=== PATIENT | female | born 1960 | race Hispanic/Latino ===

== ENCOUNTER → 2018-06-22 | Outpatient (CLI) | payer OTHER | END | disposition home or self-care (01) | LOC: SHCH 10:00 | PROVIDERS: ATTEND Internal Medicine Cardiovascular Disease | DX: I11.9 Hypertensive heart disease without heart failure (principal); I35.8 Other nonrheumatic aortic valve disorders; I65.23 Occlusion and stenosis of bilateral carotid arteries | CPT/HCPCS: 93306; 93880 ==

== ENCOUNTER → 2018-07-08 | Outpatient (CLI) | payer OTHER ==
[~2018-07-08] MED LIST: IOHEXOL-350 75 ML VIAL IV ONE
== END | disposition home or self-care (01) ==
LOC: RAH 08:07
PROVIDERS: ATTEND Internal Medicine Cardiovascular Disease
DX: I65.23 Occlusion and stenosis of bilateral carotid arteries (principal); I25.810 Atherosclerosis of coronary artery bypass graft(s) without angina pectoris
CPT/HCPCS: 70498; Q9967

== ENCOUNTER 2018-09-06 05:50 | Observation (INO) | payer OTHER, MEDICARE ==
[2018-09-02 12:45] VITALS: BP 117/58
[2018-09-02 13:13] LABS: BASOPHILS % (AUTO) 0.2 % (0.0-5.0); HEMATOCRIT 33.6 % (36-48); LYMPHOCYTES % (AUTO) 24.7 % (21.0-51.0); MEAN CORPUSCULAR HEMOGLOBIN 34.9 pg (27.0-33.0); MEAN CORPUSCULAR HGB CONC 33.6 g/dL (32.0-36.0); MEAN CORPUSCULAR VOLUME 103.9 fL (79-99); MONOCYTES % (AUTO) 8.5 % (3.0-13.0); NEUTROPHILS % (AUTO) 63.6 % (40.0-77.0); PLATELET COUNT (AUTO) 114 K/uL (130-400); RED BLOOD CELL COUNT(AUTO) 3.24 MIL/uL (4.00-5.50); RED CELL DISTRIBUTION WIDTH 14.4 % (11.0-15.5); WHITE BLOOD COUNT (AUTO) 5.9 K/uL (4.8-10.8)
[2018-09-02 13:20] LABS: CREATININE 1.3 mg/dL (0.5-1.5); POTASSIUM 4.5 mmol/L (3.5-5.1)
[2018-09-02 13:20] LABS: APPEARANCE,URINE Clear (CLEAR); BILIRUBIN,URINE Negative (NEGATIVE); COLOR,URINE Yellow (YELLOW); GLUCOSE, URINE (UA) Negative (NEGATIVE); KETONES,URINE Negative (NEGATIVE); LEUKOCYTE ESTERASE ,URINE Trace (NEGATIVE); NITRATE,URINE Negative (NEGATIVE); OCCULT BLOOD,URINE Negative (NEGATIVE); PROTEIN,URINE Negative (NEGATIVE)
[2018-09-02 13:24] LABS: INR 1.04 (0.85-1.15); PARTIAL THROMBOPLASTIN TIME 29.6 SEC (26.3-35.5); PROTHROMBIN TIME 10.9 SEC (9.6-11.6)
[2018-09-02 13:53] LABS: BACTERIA,URINE Few /HPF (None Seen); RBC,URINE 0-1 /HPF (0-1); WBC,URINE 0-1 /HPF (0-1)
--- NOTE | 2018-09-05 11:54 | NUR ---
LABS ABNORMAL H&H, PLT , BUN, CREA AND CHEST XRAY. REPORTED TO RICK BARTHOLOMEW, NO FURTHER ORDERS GIVEN.
[2018-09-06] VITALS (15 sets, daily range): BP systolic 101–139; BP diastolic 50–77
[~2018-09-06] VITALS: Ht 144.8 cm; Wt 62.2 kg
[~2018-09-06 05:50] MED LIST changes: +ASPI-555 PO; +ATOR10TA69 PO; +CETI10TA57 PO; +CLOP75TA32 PO; +FERR325T22 PO; +INSU200I SQ; +INSU300I SQ; -IOHEXOL-350 75 ML VIAL IV ONE; +LEVO175T9 PO; +METO-408 PO; +VITAMIN D3 PO
[2018-09-06] MEDS ORDERED: SODIUM CHLORIDE 0.9% 1000ML 1,000 ML IV ONE (06:45)
[2018-09-06] MEDS ORDERED: HEPARIN SODIUM 1000UNIT/ML 10ML VIAL ONE (07:15)
[2018-09-06] MEDS ORDERED: SODIUM BICARB 50MEQ 50ML VIAL ONE (07:15)
[2018-09-06] MEDS ORDERED: LIDOCAINE HCL 2% 20ML ONE (07:15)
[2018-09-06] MEDS ORDERED: IOHEXOL-350 50ML VIAL IV ONE (07:15)
[2018-09-06] MEDS ORDERED: NITROGLYCERIN 5 MG/ML 10 ML VIAL IV ONE (07:15)
[2018-09-06] MEDS ORDERED: IOHEXOL 350 MG/ML 100ML INFUS..BTL IV ONE ×2 (07:15→08:42)
[2018-09-06] MEDS ORDERED: MEPERIDINE-PF 25 MG/ML SYG ONE ×3 (07:52→09:33)
[2018-09-06] MEDS ORDERED: MIDAZOLAM HCL 1 MG/ML 2ML VIAL ONE ×3 (07:52→09:33)
[2018-09-06] MEDS ORDERED: IOHEXOL-350 75 ML VIAL IV ONE (08:52)
[2018-09-06] MEDS ORDERED: ONDANSETRON HCL 4 MG/2 ML VIAL IVP PRN (09:45)
[2018-09-06] MEDS ORDERED: ACETAMINOPHEN-CODEINE 300/30MG TAB PO PRN ×2 (09:45)
[2018-09-06] MEDS ORDERED: DEXTROSE 50%-WATER 50 ML DISP.SYRIN IV PRN (09:45)
--- NOTE | 2018-09-06 10:25 | NUR ---
RECEIVED FROM JOINT FINISHER VIA BED ACCOMPANIED BY Brianna BEY RN. PT. AAOX3, RESP.'S EVEN AND UNLABORED. DENIES ANY C/O SOB, DENIES ANY CURRENT PAIN. INSTRUCTED ON STRICT BR PER MD ORDERS, VERBALIZED UNDERSTANDING. BILATERAL GROINS WITH DRSG.'S IN PLACE, D/I; AREAS SOFT, NO HEMATOMA NOTED. PT. DENIES ANY C/O PAIN ON PALPATION TO GROINS. DENIES ANY C/O NUMBNESS OR TINGLING TO FEET. BED PLACED IN REVERSE [place] POSITION. SIDE RAILS UP X3. ROOM DOOR OPEN, VISIBLE FROM NURSE'S STATION.
[2018-09-06] MEDS: INSULIN HUMULIN R 100 UNIT/ML 3ML SQ SCH ×2 (11:30→20:58)
[2018-09-06] MEDS: FUROSEMIDE 20 MG TABLET PO SCH (11:37)
[2018-09-06] MEDS: SPIRONOLACTONE 25 MG TAB PO SCH (11:37)
[2018-09-06] MEDS: SODIUM CHLORIDE 0.9% 1000ML 1,000 ML IV SCH ×2 (11:39→21:02)
--- NOTE | 2018-09-06 11:48 | NUR ---
BLOOD SUGAR-61. PT. AAOX3. DENIES ANY C/O AT THIS TIME. PROVIDED WITH ORANGE JUICE. WILL EAT LUNCH. SISTER AT BEDSIDE.
--- NOTE | 2018-09-06 11:50 | NUR ---
VIOLETA BAKER NP, IN ROOM WITH PT. FOR HOSPITALIST.
[2018-09-06] MEDS: INSULIN LISPRO 100 UNIT/ML 3ML SQ SCH ×2 (11:55→17:00)
--- NOTE | 2018-09-06 13:00 | NUR ---
REPOSITIONED FOR COMFORT. CALL LIGHT WITHIN REACH.
[2018-09-06] MEDS: ALPRAZOLAM 0.25 MG TABLET PO SCH ×2 (13:11→21:01)
--- NOTE | 2018-09-06 14:43 | NUR ---
TRANSFERRED TO ROOM 223 VIA BED WITH BELONGINGS, ACCOMPANIED BY THIS NURSE. REPORT TO Brianna SHELLEY RN.
[2018-09-06] MEDS ORDERED: INSULIN GLARGINE 100 UNITS/ML 10 ML VIAL SQ SCH (16:30)
[2018-09-06] MEDS ORDERED: LOSARTAN 50 MG TABLET PO SCH (21:00)
[2018-09-06] MEDS ORDERED: ATORVASTATIN CALCIUM 10 MG TABLET PO SCH (21:00)
[2018-09-06] MEDS: METOPROLOL TARTRATE 25 MG TAB PO SCH (21:00)
[2018-09-07 03:45] VITALS: BP 96/47
[2018-09-07 04:19] LABS: HEMATOCRIT 27.2 % (36-48); MEAN CORPUSCULAR HEMOGLOBIN 35.4 pg (27.0-33.0); MEAN CORPUSCULAR HGB CONC 34.6 g/dL (32.0-36.0); MEAN CORPUSCULAR VOLUME 102.5 fL (79-99); NUCLEATED RED BLOOD CELLS 0.1 % (0.0-0.19); PLATELET COUNT (AUTO) 93 K/uL (130-400); RED BLOOD CELL COUNT(AUTO) 2.65 MIL/uL (4.00-5.50); RED CELL DISTRIBUTION WIDTH 13.7 % (11.0-15.5); WHITE BLOOD COUNT (AUTO) 5.9 K/uL (4.8-10.8)
[2018-09-07 04:46] LABS: CREATININE 1.3 mg/dL (0.5-1.5); POTASSIUM 4.4 mmol/L (3.5-5.1); THYROID STIMULATING HORMONE 13.05 uIU/mL (0.36-3.74)
[2018-09-07 05:02] LABS: T4 (THYROXINE) 9.4 ug/dL (4.7-13.3)
[2018-09-07] MEDS ORDERED: LEVOTHYROXINE 100 MCG TABLET ONE (06:07)
[2018-09-07] MEDS: INSULIN HUMULIN R 100 UNIT/ML 3ML SQ SCH (06:08)
[2018-09-07] MEDS ORDERED: LEVOTHYROXINE 75 MCG TABLET ONE (06:08)
[2018-09-07 07:00] VITALS: BP 116/63
--- NOTE | 2018-09-07 07:20 | NUR ---
Bedside report given to nurse Croft,using SBAr,pt. remained stable B/S rechecked =142.Bilateral groins no bleeding ,bruising or hematoma noted.
[2018-09-07] MEDS ORDERED: LEVOTHYROXINE 75 MCG TABLET PO SCH (07:30)
[2018-09-07] MEDS ORDERED: LEVOTHYROXINE 100 MCG TABLET PO SCH (07:30)
[2018-09-07] MEDS: INSULIN LISPRO 100 UNIT/ML 3ML SQ SCH (08:40)
[2018-09-07] MEDS ORDERED: CLOPIDOGREL BISULFATE 75 MG TAB PO SCH (09:00)
[2018-09-07] MEDS ORDERED: CETIRIZINE HCL 5 MG TABLET PO SCH (09:00)
[2018-09-07] MEDS ORDERED: VITAMIN D3 25 MCG PO SCH (09:00)
[2018-09-07] MEDS ORDERED: INSULIN GLARGINE 100 UNITS/ML 10 ML VIAL SQ SCH (09:00)
[2018-09-07] MEDS ORDERED: FERROUS SULFATE 325 MG TABLET.DR PO SCH (09:00)
[2018-09-07] MEDS: ALPRAZOLAM 0.25 MG TABLET PO SCH (09:00)
[2018-09-07] MEDS ORDERED: ASPIRIN 81 MG EC TAB PO SCH (09:00)
[2018-09-07] MEDS: SPIRONOLACTONE 25 MG TAB PO SCH (09:41)
[2018-09-07] MEDS: FUROSEMIDE 20 MG TABLET PO SCH (09:41)
[2018-09-07] MEDS: METOPROLOL TARTRATE 25 MG TAB PO SCH (09:41)
[2018-09-07] MEDS ORDERED: LOSA25TA41 PO (10:33)
[2018-09-07] MEDS ORDERED: ATOR20TA65 PO (10:33)
[2018-09-07] MEDS ORDERED: FURO20TA6 PO (10:34)
[2018-09-07] MEDS ORDERED: SPIR25TA6 PO (10:34)
== END 2018-09-07 10:20 | disposition home or self-care (01) ==
LOC: DAH 05:50 → DAHIP 05:51 → 2CH 10:29 → 2DH 14:46
PROVIDERS: ADMIT Internal Medicine; ATTEND Internal Medicine
DX: I25.119 Atherosclerotic heart disease of native coronary artery with unspecified angina pectoris (principal); E03.9 Hypothyroidism, unspecified; E78.00 Pure hypercholesterolemia, unspecified; E11.9 Type 2 diabetes mellitus without complications; E78.5 Hyperlipidemia, unspecified; I11.0 Hypertensive heart disease with heart failure; I50.9 Heart failure, unspecified; I25.2 Old myocardial infarction; I25.5 Ischemic cardiomyopathy; I25.82 Chronic total occlusion of coronary artery; K76.0 Fatty (change of) liver, not elsewhere classified; Z79.899 Other long term (current) drug therapy; Z88.0 Allergy status to penicillin; Z98.41 Cataract extraction status, right eye; Z98.42 Cataract extraction status, left eye
CPT/HCPCS: 33990; 36415 ×3; 71045; 80048 ×2; 80061; 81001; 82948 ×7; 84436; 84443; 84480; 85025; 85027; 85347 ×3; 85610; 85730; 93005; 93458; 96372; A4606; C1725 ×3; C1760 ×3; C1769 ×2; C1874 ×2; C1887; C1889; C1894 ×2; C9600; C9601; G0378 ×24; J1644 ×3; J2175 ×3; J2250 ×3; J3490 ×3; J7030; Q9965 ×2; Q9967 ×3; 99156; 99157

== ENCOUNTER 2018-09-20 10:22 | Observation (INO) | payer OTHER, MEDICARE ==
[~2018-09-20] VITALS: Ht 144.8 cm; Wt 66.0 kg
[~2018-09-20 10:22] MED LIST changes: -ATOR10TA69 PO; +ATOR20TA65 PO; +FURO20TA6 PO; +LOSA25TA41 PO; +SPIR25TA6 PO
[2018-09-20 11:08] LABS: BASOPHILS % (AUTO) 0.6 % (0.0-5.0); EOSINOPHILS % (AUTO) 3.1 % (0.0-8.0); HEMATOCRIT 27.9 % (36-48); LYMPHOCYTES % (AUTO) 17.4 % (21.0-51.0); MEAN CORPUSCULAR HEMOGLOBIN 35.2 pg (27.0-33.0); MEAN CORPUSCULAR HGB CONC 34.2 g/dL (32.0-36.0); MEAN CORPUSCULAR VOLUME 102.7 fL (79-99); NEUTROPHILS % (AUTO) 71.9 % (40.0-77.0); PLATELET COUNT (AUTO) 106 K/uL (130-400); RED BLOOD CELL COUNT(AUTO) 2.72 MIL/uL (4.00-5.50); WHITE BLOOD COUNT (AUTO) 5.7 K/uL (4.8-10.8)
[2018-09-20 11:23] LABS: CREATININE 2.2 mg/dL (0.5-1.5)
[2018-09-20 11:31] LABS: POTASSIUM 6.9 mmol/L (3.5-5.1)
[2018-09-20] MEDS ORDERED: SODIUM BICARB 50MEQ 50ML VIAL ONE (11:51)
[2018-09-20] MEDS ORDERED: CALCIUM GLUCONATE 1 GM/10 ML VIAL IV ONE (11:51)
[2018-09-20] MEDS ORDERED: INSULIN HUMULIN R 100 UNIT/ML 3ML ONE (11:52)
[2018-09-20] MEDS ORDERED: SODIUM CHLORIDE 0.9% 100 ML IV ONE (11:53)
[2018-09-20 11:55] LABS: PLATELET MORPHOLOGY COMMENT SLIGHTLY DECREASED
[2018-09-20] MEDS ORDERED: SODIUM POLYSTYRENE SULFONATE 15 GM/60 ML ML ONE ×3 (12:27→17:34)
[2018-09-20 14:43] VITALS: BP 109/53
[2018-09-20] MEDS ORDERED: GLUCAGON 1MG KIT 1 MG ML IM PRN (14:45)
[2018-09-20] MEDS ORDERED: HYDRALAZINE HCL 20 MG/ML VIAL IV PRN (14:45)
[2018-09-20] MEDS ORDERED: ACETAMINOPHEN 325 MG TAB PO PRN (14:45)
[2018-09-20] MEDS ORDERED: DEXTROSE 50%-WATER 50 ML DISP.SYRIN IV PRN (14:45)
[2018-09-20] MEDS ORDERED: HYDROCODONE/ACETAMINOPHEN 5/325 MG TAB PO PRN (14:45)
--- NOTE | 2018-09-20 14:50 | NUR ---
ADMISSION . FROM . ER. PER SERVICES OF DR. AMIN. . PT AAO X [address]ie ORDERS WITH PT. AND CARE , FALL RISK AND CALL LIGHT . IN REACH. .
[2018-09-20] MEDS: INSULIN HUMULIN R 100 UNIT/ML 3ML SQ SCH ×2 (15:28→20:14)
[2018-09-20] MEDS ORDERED: LACT10SO8 PO (16:16)
[2018-09-20] MEDS ORDERED: FOLI1TAB85 PO (16:29)
[2018-09-20] MEDS ORDERED: LACT10SO PO (17:24)
[2018-09-20] MEDS: SODIUM BICARBONATE 650 MG TAB PO SCH ×2 (17:30→21:00)
[2018-09-20] MEDS: SODIUM CHLORIDE 0.9% 1000ML 1,000 ML IV SCH (18:14)
[2018-09-20] MEDS ORDERED: SODIUM POLYSTYRENE SULFONATE 15 GM/60 ML ML PO SCH (18:35)
[2018-09-20 18:41] LABS: ABG BASE EXCESS -11.7 mmol/L (-2.0-3.0); ABG HCO3 11.3 mmol/L (21.0-28.0); ABG OXYGEN SATURATION 98.1 % (95.0-99.0); ABG PCO2 21 mmHg (32-45)
--- NOTE | 2018-09-20 19:50 | NUR ---
MAINE APONTE N.P WAS CALLED AND UPDATE RESULTS OF ABG'S PH OF 7.358,PCO2 20.5,PO2 114.3 HCO2 11.3 02 SAT 98.1 ON ROOM AIR. WITH ORDERS TO FOLLOW. GIVE 2AMP OF SODIUM BICARB IVP FOR CORRECTIONS
[2018-09-20 20:14] VITALS: BP 110/67
[2018-09-20] MEDS: ATORVASTATIN CALCIUM 20 MG TABLET PO SCH (20:14)
[2018-09-20] MEDS ORDERED: SODIUM BICARB 50MEQ 50ML VIAL IV SCH (20:55)
[2018-09-20] MEDS ORDERED: SODIUM BICARB 50MEQ 50ML VIAL IV ONE (21:00)
[2018-09-20 23:29] VITALS: BP 108/57
[2018-09-21 04:06] VITALS: BP 98/55
[2018-09-21 05:26] LABS: BASOPHILS % (AUTO) 0.4 % (0.0-5.0); EOSINOPHILS % (AUTO) 5.3 % (0.0-8.0); HEMATOCRIT 24.6 % (36-48); LYMPHOCYTES % (AUTO) 23.1 % (21.0-51.0); MEAN CORPUSCULAR HEMOGLOBIN 35.1 pg (27.0-33.0); MEAN CORPUSCULAR HGB CONC 34.3 g/dL (32.0-36.0); MEAN CORPUSCULAR VOLUME 102.3 fL (79-99); MONOCYTES % (AUTO) 11.6 % (3.0-13.0); NEUTROPHILS % (AUTO) 59.6 % (40.0-77.0); PLATELET COUNT (AUTO) 86 K/uL (130-400); RED CELL DISTRIBUTION WIDTH 13.8 % (11.0-15.5); WHITE BLOOD COUNT (AUTO) 4.9 K/uL (4.8-10.8)
[2018-09-21] MEDS: INSULIN HUMULIN R 100 UNIT/ML 3ML SQ SCH ×4 (05:31→20:17)
[2018-09-21 05:47] LABS: ALBUMIN 2.9 g/dL (3.5-5.0); CREATININE 1.6 mg/dL (0.5-1.5); POTASSIUM 4.5 mmol/L (3.5-5.1); THYROID STIMULATING HORMONE 19.55 uIU/mL (0.36-3.74); TOTAL PROTEIN, SERUM 7.3 g/dL (6.0-8.3)
[2018-09-21] MEDS: LEVOTHYROXINE 75 MCG TABLET PO SCH (06:33)
[2018-09-21] MEDS: PANTOPRAZOLE SODIUM 40 MG TABLET.DR PO SCH (06:34)
[2018-09-21] MEDS: LEVOTHYROXINE 100 MCG TABLET PO SCH (06:34)
[2018-09-21 07:00] VITALS: BP 114/57
[2018-09-21] MEDS: SODIUM BICARBONATE 650 MG TAB PO SCH ×6 (08:00→20:14)
[2018-09-21] MEDS ORDERED: VITAMIN D3 25 MCG PO SCH (09:00)
[2018-09-21] MEDS ORDERED: CETIRIZINE HCL 5 MG TABLET PO SCH (09:00)
[2018-09-21] MEDS ORDERED: ASPIRIN 81MG TAB.CHEW PO SCH (09:00)
[2018-09-21] MEDS ORDERED: FERROUS SULFATE 325 MG TABLET.DR PO SCH (09:00)
[2018-09-21] MEDS ORDERED: CLOPIDOGREL BISULFATE 75 MG TAB PO SCH (09:00)
[2018-09-21] MEDS ORDERED: ENOXAPARIN SODIUM 30 MG/0.3 ML SQ SCH (09:00)
[2018-09-21] MEDS ORDERED: PANTOPRAZOLE 40 MG/VIAL IVP SCH (09:00)
[2018-09-21] MEDS: METOPROLOL TARTRATE 25 MG TAB PO SCH ×2 (09:10→20:14)
[2018-09-21 11:00] VITALS: BP 103/57
--- NOTE | 2018-09-21 11:20 | NUR ---
INITIAL MET W PT AND MIRZA AT BEDSIDE- PT LIVES ALONE, IS A , HOME IS SAFE AND ACCESSIBLE, WITH RAMP AND SHOWER CHAIR IN BR; USES NO DME, HAS PROVIDER 24 HRS WK, AND ANITICIPATES WILL DC HOME, RENAL FAILURE IS ACUTE ON CHRONIC, STATES USES TO SEE DR. GONSALEZ BUT NOT IN NETWORK. [employer] CONSULT WILL BE INITIATED FOR RENAL NON DIALYSIS DIET; . CM TO FOLLOW Addendum: 09/21/18 at 1655 by ART EASTON RN CM Amended: Links added.
[2018-09-21] MEDS ORDERED: LEVOTHYROXINE 100 MCG VIAL IV SCH (11:30)
--- NOTE | 2018-09-21 12:30 | NUR ---
CALL DR. BRADLEY'S OFFICE TO FOLLOW UP ON THE CONSULT SINCE DR. BRADLEY HASN'T COME TO SEE THE PATIENT. THE OFFICE PERSON VERBALIZED THAT SHE WILL PAGE DR. BRADLEY. WILL WAIT FOR DR. BRADLEY'S CALL.
--- NOTE | 2018-09-21 12:40 | NUR ---
DR. BRADLEY CALL AND NOTIFIED HIM OF THE CONSULT AND TOLD HIM THAT HE WAS NOTIFIED OF THE CONSULT ALREADY AND JUST FOLLOW UP SO THAT HE CAN SEE THE PATIENT.
[2018-09-21 16:00] VITALS: BP 117/75
[2018-09-21 19:06] VITALS: BP 105/54
[2018-09-21] MEDS: ATORVASTATIN CALCIUM 20 MG TABLET PO SCH (20:14)
[2018-09-22 00:18] VITALS: BP 100/57
[2018-09-22] MEDS: SODIUM CHLORIDE 0.9% 1000ML 1,000 ML IV SCH (00:51)
[2018-09-22 04:04] VITALS: BP 95/52
[2018-09-22 04:57] LABS: MEAN CORPUSCULAR HEMOGLOBIN 35.3 pg (27.0-33.0); MEAN CORPUSCULAR HGB CONC 34.9 g/dL (32.0-36.0); MEAN CORPUSCULAR VOLUME 101.2 fL (79-99); PLATELET COUNT (AUTO) 101 K/uL (130-400); RED BLOOD CELL COUNT(AUTO) 2.57 MIL/uL (4.00-5.50); RED CELL DISTRIBUTION WIDTH 13.6 % (11.0-15.5); WHITE BLOOD COUNT (AUTO) 5.7 K/uL (4.8-10.8)
[2018-09-22 05:07] LABS: CREATININE 1.6 mg/dL (0.5-1.5); POTASSIUM 4.7 mmol/L (3.5-5.1)
[2018-09-22] MEDS: PANTOPRAZOLE SODIUM 40 MG TABLET.DR PO SCH (06:29)
[2018-09-22] MEDS: LEVOTHYROXINE 100 MCG TABLET PO SCH (06:29)
[2018-09-22] MEDS: INSULIN HUMULIN R 100 UNIT/ML 3ML SQ SCH (06:30)
[2018-09-22] MEDS: LEVOTHYROXINE 75 MCG TABLET PO SCH (06:30)
[2018-09-22 07:00] VITALS: BP 121/66
[2018-09-22] MEDS ORDERED: SODI650T PO (07:57)
== END 2018-09-22 11:11 | disposition home or self-care (01) ==
LOC: EDH 10:22 → EDHIP 12:10 → 3CH 14:21
PROVIDERS: ADMIT Internal Medicine; ATTEND Internal Medicine
DX: E87.5 Hyperkalemia (principal); E03.9 Hypothyroidism, unspecified; E87.2 Acidosis; E11.22 Type 2 diabetes mellitus with diabetic chronic kidney disease; E78.5 Hyperlipidemia, unspecified; N17.9 Acute kidney failure, unspecified; I12.9 Hypertensive chronic kidney disease with stage 1 through stage 4 chronic kidney disease, or unspecified chronic kidney disease; N18.9 Chronic kidney disease, unspecified; I25.10 Atherosclerotic heart disease of native coronary artery without angina pectoris; K74.60 Unspecified cirrhosis of liver; Z95.5 Presence of coronary angioplasty implant and graft; Z79.899 Other long term (current) drug therapy; Z79.02 Long term (current) use of antithrombotics/antiplatelets; Z79.4 Long term (current) use of insulin; Z79.890 Hormone replacement therapy
CPT/HCPCS: 36415 ×3; 36600; 71045 ×2; 76770; 80048 ×2; 80053; 82550; 82803; 82948 ×8; 84132; 84443; 84484; 85025 ×2; 85027; 93005; 96372 ×3; 96374; 96375; 99291; G0378 ×47; J0610; J1650; J1815 ×2; J3490 ×3

== ENCOUNTER 2018-11-18 10:27 | Inpatient (IN) | payer OTHER, MEDICARE ==
[~2018-11-18] VITALS: Ht 144.8 cm; Wt 75.9 kg
[~2018-11-18 10:27] MED LIST changes: +FOLI1TAB85 PO; -FURO20TA6 PO; +LACT10SO62 PO; -LOSA25TA41 PO; +SODI650T PO; -SPIR25TA6 PO
[2018-11-18 11:48] LABS: BASOPHILS % (AUTO) 0.4 % (0.0-5.0); EOSINOPHILS % (AUTO) 4.6 % (0.0-8.0); HEMATOCRIT 29.2 % (36-48); MEAN CORPUSCULAR HEMOGLOBIN 34.1 pg (27.0-33.0); MEAN CORPUSCULAR HGB CONC 34.8 g/dL (32.0-36.0); MEAN CORPUSCULAR VOLUME 97.9 fL (79-99); MONOCYTES % (AUTO) 14.3 % (3.0-13.0); NEUTROPHILS % (AUTO) 62.7 % (40.0-77.0); PLATELET COUNT (AUTO) 118 K/uL (130-400); RED BLOOD CELL COUNT(AUTO) 2.98 MIL/uL (4.00-5.50); WHITE BLOOD COUNT (AUTO) 5.7 K/uL (4.8-10.8)
[2018-11-18 11:54] LABS: INR 1.08 (0.85-1.15); PARTIAL THROMBOPLASTIN TIME 27.1 SEC (26.3-35.5); PROTHROMBIN TIME 11.3 SEC (9.6-11.6)
[2018-11-18 11:55] LABS: BILIRUBIN,TOTAL 1.5 mg/dL (0.2-1.0); CREATININE 2.6 mg/dL (0.5-1.5); POTASSIUM 3.7 mmol/L (3.5-5.1); TOTAL PROTEIN, SERUM 7.7 g/dL (6.0-8.3)
[2018-11-18] MEDS ORDERED: ONDANSETRON HCL 4 MG/2 ML VIAL IV PRN (12:15)
[2018-11-18] MEDS ORDERED: LACTULOSE 20 GM/30 ML UDCUP PO PRN (12:15)
[2018-11-18] MEDS ORDERED: GUAIFENESIN-DM 200/20 MG 10 ML PO PRN (12:15)
[2018-11-18] MEDS ORDERED: MAG HYDROX/AL HYDROX/SIMETH ES 30 ML SUSP UDCUP PO PRN (12:15)
[2018-11-18] MEDS ORDERED: BENZONATATE 100 MG CAPSULE PO PRN (12:15)
[2018-11-18 12:25] VITALS: BP 115/59
--- NOTE | 2018-11-18 12:25 | NUR ---
Mireya SOLIS NP, IN ROOM SPEAKING WITH PT.
[2018-11-18 12:29] LABS: B-TYPE NATRIURETIC PEPTIDE 1490 pg/mL (0-100)
[2018-11-18] MEDS ORDERED: METHYLPREDNISOLONE SOD SUCC 125MG/2ML VIAL IVP SCH (12:56)
[2018-11-18] MEDS ORDERED: METHYLPREDNISOLONE SOD SUCC 40MG/ML 1ML IVP SCH (13:00)
[2018-11-18] MEDS: INSULIN HUMULIN R 100 UNIT/ML 3ML SQ SCH ×3 (13:43→20:23)
[2018-11-18] MEDS ORDERED: CEFTRIAXONE SODIUM 2 GM VIAL IVP SCH (13:45)
[2018-11-18] MEDS: MIDODRINE HCL 5 MG TABLET PO SCH ×2 (14:38→20:24)
[2018-11-18] MEDS: ALBUMIN (HUMAN) 25% 100 ML IV SCH ×2 (14:52→17:16)
--- NOTE | 2018-11-18 14:53 | NUR ---
DR. Basil GONSALEZ IN ROOM WITH PT. FOR CONSULT.
[2018-11-18 15:00] VITALS: BP 111/56
--- NOTE | 2018-11-18 15:15 | NUR ---
16FR. F/C INSERTED USING STERILE TECHNIQUE BY Salome MCKINNON RN.
[2018-11-18] MEDS ORDERED: SODI650T PO (15:18)
[2018-11-18] MEDS ORDERED: FERS325 PO (15:18)
[2018-11-18] MEDS ORDERED: LEVO200T10 PO (15:18)
[2018-11-18] MEDS ORDERED: INSULIN HUMULIN R 100 UNIT/ML 3ML SQ SCH (16:30)
[2018-11-18] MEDS: METHYLPREDNISOLONE SOD SUCC 40MG/ML 1ML IVP SCH ×2 (17:19→23:37)
[2018-11-18] MEDS: ALBUTEROL SULFATE 0.083% 2.5 MG/3 ML INH IH SCH ×2 (18:35→23:14)
[2018-11-18 19:27] VITALS: BP 124/72
[2018-11-18] MEDS: FAMOTIDINE 20MG TAB 20 MG TAB PO SCH (20:24)
[2018-11-18] MEDS: LACTULOSE 20 GM/30 ML UDCUP PO SCH (20:25)
[2018-11-18 23:34] VITALS: BP 129/70
[2018-11-19] MEDS: ALBUMIN (HUMAN) 25% 100 ML IV SCH ×3 (00:51→16:40)
[2018-11-19 03:52] VITALS: BP 139/72
[2018-11-19 03:54] LABS: BASOPHILS % (AUTO) 0.1 % (0.0-5.0); LYMPHOCYTES % (AUTO) 8.6 % (21.0-51.0); MEAN CORPUSCULAR HEMOGLOBIN 34.7 pg (27.0-33.0); MEAN CORPUSCULAR HGB CONC 35.2 g/dL (32.0-36.0); MEAN CORPUSCULAR VOLUME 98.8 fL (79-99); MONOCYTES % (AUTO) 3.1 % (3.0-13.0); NEUTROPHILS % (AUTO) 88.2 % (40.0-77.0); PLATELET COUNT (AUTO) 84 K/uL (130-400); RED BLOOD CELL COUNT(AUTO) 2.63 MIL/uL (4.00-5.50); RED CELL DISTRIBUTION WIDTH 13.9 % (11.0-15.5); WHITE BLOOD COUNT (AUTO) 3.4 K/uL (4.8-10.8)
[2018-11-19 04:09] LABS: ALBUMIN 4.3 g/dL (3.5-5.0); BILIRUBIN,TOTAL 1.9 mg/dL (0.2-1.0); CREATININE 2.8 mg/dL (0.5-1.5); MAGNESIUM 2.8 mg/dL (1.80-2.40); PHOSPHORUS 4.5 mg/dL (2.5-4.9); POTASSIUM 3.9 mmol/L (3.5-5.1); TOTAL PROTEIN, SERUM 8.1 g/dL (6.0-8.3)
[2018-11-19 04:15] LABS: B-TYPE NATRIURETIC PEPTIDE 2160 pg/mL (0-100)
[2018-11-19] MEDS: METHYLPREDNISOLONE SOD SUCC 40MG/ML 1ML IVP SCH ×3 (06:29→17:12)
[2018-11-19] MEDS: INSULIN HUMULIN R 100 UNIT/ML 3ML SQ SCH ×4 (06:30→22:28)
[2018-11-19] MEDS: ALBUTEROL SULFATE 0.083% 2.5 MG/3 ML INH IH SCH ×4 (06:35→23:14)
[2018-11-19 07:00] VITALS: BP 137/66
[2018-11-19] MEDS: LEVOTHYROXINE 75 MCG TABLET PO SCH (07:20)
[2018-11-19] MEDS: LEVOTHYROXINE 100 MCG TABLET PO SCH (07:20)
[2018-11-19] MEDS: **HM** VIT D3 25MCG PO SCH (09:00)
[2018-11-19] MEDS: LACTULOSE 20 GM/30 ML UDCUP PO SCH ×2 (09:00→20:43)
[2018-11-19] MEDS: CETIRIZINE HCL 5 MG TABLET PO SCH (09:37)
[2018-11-19] MEDS: MIDODRINE HCL 5 MG TABLET PO SCH ×3 (09:37→22:26)
[2018-11-19] MEDS: FOLIC ACID/VITAMIN B COMP W-C 1 MG CAP/TAB PO SCH (09:37)
[2018-11-19] MEDS: FAMOTIDINE 20MG TAB 20 MG TAB PO SCH ×2 (09:37→20:38)
[2018-11-19] MEDS: FERROUS SULFATE 325 MG TABLET.DR PO SCH (09:37)
[2018-11-19] MEDS: OCTREOTIDE ACETATE 100 MCG/ML AMP SQ SCH (09:41)
[2018-11-19 11:00] VITALS: BP 122/69
--- NOTE | 2018-11-19 13:25 | NUR ---
DR. GONSALEZ IN ROOM SPEAKING WITH PT. RE:PLAN OF CARE. DAUGHTER AND MULTIPLE PT.'S FRIENDS AT BEDSIDE. QUESTIONS ANSWERED BY DR. GONSALEZ. DR. GONSALEZ EXPLAINED LIVER CIRRHOSIS AND RENAL FAILURE TO PT.; VERBALIZED UNDERSTANDING. Addendum: 11/19/18 at 1735 by VINOD CÁRDENAS RN RN CORRECTION:PT.'S SISTER AT BEDSIDE NOT DAUGHTER.
--- NOTE | 2018-11-19 14:42 | NUR ---
DR. Salome JO IN ROOM SPEAKING WITH PT. AND PT.'S SISTER AT BEDSIDE; QUESTIONS ANSWERED BY DR. JO.
[2018-11-19 15:00] VITALS: BP 144/67
--- NOTE | 2018-11-19 18:04 | NUR ---
cm note met with patient and states resides at home alone. , uses walker for ambulation, no other DME has provider approx 3-4hrs daily. pt states dc plan is back to home at time of dc., sister will transport. and available to assist as needed. Addendum: 11/19/18 at 1807 by RAFAEL MOLINA CM Amended: Links added.
--- NOTE | 2018-11-19 18:20 | NUR ---
PAGED DR. Geoffrey DILLON, PRICE CHANGER PER ANSWERING SERVICE, FOR CONSULT. AWAITING RESPONSE.
[2018-11-19 20:20] VITALS: BP 154/81
[2018-11-19 23:50] VITALS: BP 135/67
[2018-11-20] MEDS: METHYLPREDNISOLONE SOD SUCC 40MG/ML 1ML IVP SCH ×5 (00:56→23:45)
[2018-11-20] MEDS: ALBUMIN (HUMAN) 25% 100 ML IV SCH ×3 (01:07→17:35)
[2018-11-20 04:03] LABS: BASOPHILS % (AUTO) 0.1 % (0.0-5.0); HEMATOCRIT 25.9 % (36-48); MEAN CORPUSCULAR HEMOGLOBIN 34.2 pg (27.0-33.0); MEAN CORPUSCULAR HGB CONC 34.3 g/dL (32.0-36.0); MEAN CORPUSCULAR VOLUME 99.7 fL (79-99); MONOCYTES % (AUTO) 7.7 % (3.0-13.0); NEUTROPHILS % (AUTO) 85.2 % (40.0-77.0); PLATELET COUNT (AUTO) 90 K/uL (130-400); RED BLOOD CELL COUNT(AUTO) 2.59 MIL/uL (4.00-5.50); RED CELL DISTRIBUTION WIDTH 14.3 % (11.0-15.5); WHITE BLOOD COUNT (AUTO) 6.9 K/uL (4.8-10.8)
[2018-11-20 04:11] VITALS: BP 130/62
[2018-11-20 04:17] LABS: CREATININE 2.6 mg/dL (0.5-1.5); MAGNESIUM 2.8 mg/dL (1.80-2.40); PHOSPHORUS 4.8 mg/dL (2.5-4.9); POTASSIUM 3.9 mmol/L (3.5-5.1)
[2018-11-20] MEDS: MIDODRINE HCL 5 MG TABLET PO SCH ×3 (06:00→21:22)
[2018-11-20] MEDS: ALBUTEROL SULFATE 0.083% 2.5 MG/3 ML INH IH SCH ×4 (06:21→23:29)
[2018-11-20] MEDS: LEVOTHYROXINE 100 MCG TABLET PO SCH (06:28)
[2018-11-20] MEDS: LEVOTHYROXINE 75 MCG TABLET PO SCH (06:28)
[2018-11-20] MEDS: INSULIN HUMULIN R 100 UNIT/ML 3ML SQ SCH ×4 (06:34→21:21)
[2018-11-20 07:38] VITALS: BP 143/77
[2018-11-20] MEDS: CETIRIZINE HCL 5 MG TABLET PO SCH (09:13)
[2018-11-20] MEDS: FOLIC ACID/VITAMIN B COMP W-C 1 MG CAP/TAB PO SCH (09:13)
[2018-11-20] MEDS: FAMOTIDINE 20MG TAB 20 MG TAB PO SCH ×2 (09:13→20:39)
[2018-11-20] MEDS: FERROUS SULFATE 325 MG TABLET.DR PO SCH (09:13)
[2018-11-20] MEDS: OCTREOTIDE ACETATE 100 MCG/ML AMP SQ SCH (09:14)
[2018-11-20] MEDS: LACTULOSE 20 GM/30 ML UDCUP PO SCH ×2 (09:14→20:38)
[2018-11-20] MEDS: **HM** VIT D3 25MCG PO SCH (09:19)
[2018-11-20 11:20] VITALS: BP 127/78
[2018-11-20] MEDS: FUROSEMIDE 10 MG/ML 2ML VIAL IV SCH ×2 (11:55→17:37)
[2018-11-20 15:11] VITALS: BP 145/76
[2018-11-20 16:05] LABS: APPEARANCE,URINE Turbid (CLEAR); BILIRUBIN,URINE Moderate (NEGATIVE); COLOR,URINE Red (YELLOW); GLUCOSE, URINE (UA) Negative (NEGATIVE); KETONES,URINE Negative (NEGATIVE); LEUKOCYTE ESTERASE ,URINE Large (NEGATIVE); NITRATE,URINE Positive (NEGATIVE); OCCULT BLOOD,URINE Small (NEGATIVE); PROTEIN,URINE POS 2+ mg/dL (NEGATIVE); UROBILINOGEN,URINE 0.2 mg/dL (0.2-1.0)
[2018-11-20 16:07] LABS: PH,URINE 8.5 (5.0-8.0)
[2018-11-20 16:13] LABS: RBC,URINE Full Field /HPF (0-1)
[2018-11-20 16:18] LABS: BACTERIA,URINE Few /HPF (None Seen); WBC,URINE 26-50 /HPF (0-1)
--- NOTE | 2018-11-20 17:29 | NUR ---
DR. Geoffrey DILLON IN ROOM WITH PT. FOR CONSULT.
[2018-11-20] MEDS ORDERED: PHARMACY COMMUNICATION MISC SCH (17:45)
[2018-11-20] MEDS: LEVOFLOXACIN 250 MG/D5W 50ML 50 ML IV SCH (18:13)
[2018-11-20 19:48] VITALS: BP 124/68
[2018-11-20 23:50] VITALS: BP 99/56
[2018-11-21] MEDS: FUROSEMIDE 10 MG/ML 2ML VIAL IV SCH ×3 (01:39→18:01)
[2018-11-21 03:36] LABS: BASOPHILS % (AUTO) 0.1 % (0.0-5.0); LYMPHOCYTES % (AUTO) 4.8 % (21.0-51.0); MEAN CORPUSCULAR HEMOGLOBIN 34.2 pg (27.0-33.0); MEAN CORPUSCULAR HGB CONC 33.9 g/dL (32.0-36.0); MEAN CORPUSCULAR VOLUME 100.9 fL (79-99); NEUTROPHILS % (AUTO) 86.1 % (40.0-77.0); PLATELET COUNT (AUTO) 96 K/uL (130-400); RED BLOOD CELL COUNT(AUTO) 2.67 MIL/uL (4.00-5.50); RED CELL DISTRIBUTION WIDTH 14.5 % (11.0-15.5); WHITE BLOOD COUNT (AUTO) 8.4 K/uL (4.8-10.8)
[2018-11-21 03:51] LABS: CREATININE 2.6 mg/dL (0.5-1.5)
[2018-11-21 04:21] VITALS: BP 123/88
[2018-11-21] MEDS: LEVOTHYROXINE 75 MCG TABLET PO SCH (06:16)
[2018-11-21] MEDS: MIDODRINE HCL 5 MG TABLET PO SCH ×3 (06:16→21:53)
[2018-11-21] MEDS: METHYLPREDNISOLONE SOD SUCC 40MG/ML 1ML IVP SCH ×3 (06:16→17:57)
[2018-11-21] MEDS: LEVOTHYROXINE 100 MCG TABLET PO SCH (06:16)
[2018-11-21] MEDS: INSULIN HUMULIN R 100 UNIT/ML 3ML SQ SCH ×4 (06:18→22:16)
[2018-11-21] MEDS: ALBUTEROL SULFATE 0.083% 2.5 MG/3 ML INH IH SCH ×4 (07:21→23:28)
[2018-11-21 07:50] VITALS: BP 139/94
[2018-11-21] MEDS: **HM** VIT D3 25MCG PO SCH (09:00)
[2018-11-21] MEDS: CETIRIZINE HCL 5 MG TABLET PO SCH (10:08)
[2018-11-21] MEDS: FAMOTIDINE 20MG TAB 20 MG TAB PO SCH ×2 (10:08→21:53)
[2018-11-21] MEDS: FOLIC ACID/VITAMIN B COMP W-C 1 MG CAP/TAB PO SCH (10:08)
[2018-11-21] MEDS: FERROUS SULFATE 325 MG TABLET.DR PO SCH (10:08)
[2018-11-21] MEDS: LACTULOSE 20 GM/30 ML UDCUP PO SCH ×2 (10:08→21:54)
[2018-11-21] MEDS: OCTREOTIDE ACETATE 100 MCG/ML AMP SQ SCH (10:09)
[2018-11-21 11:51] VITALS: BP 136/84
[2018-11-21] MEDS ORDERED: AMINOCAPROIC ACID 500 MG TABLET PO SCH (12:30)
[2018-11-21 16:26] VITALS: BP 111/80
[2018-11-21 19:25] VITALS: BP 125/77
--- NOTE | 2018-11-21 21:00 | NUR ---
PATIENT LETHARGIC. FALLING ASLEEP DURING CONVERSATION AND TAKING MEDS. HANDS SHAKY AND UNSTEADY. ONCE AWAKE PATIENT ANSWERS QUESTIONS APPROPRIATELY BUT IS FORGETFUL. NAME, , LOCATION. PATIENT HAS LACTULOSE FROM DAY SHIFT STILL SITTING ON BEDSIDE TABLE. PATIENT DRINKING SCHEDULED NIGHT LACTULOSE WITHOUT ISSUES. MONTANEZ IN PLACE, CONTINUOS BLADDER IRRIGATION. URINE RED TINGED WITH SEDIMENT AND CLOTS IN TUBING. CBI INCREASED. WILL CONTINUE TO MONITOR CHANGES IN COLOR. PATIENT FULL BODY ANASARCA. AUDIBLE WHEEZING
[2018-11-21 23:38] VITALS: BP 124/81
[2018-11-22] MEDS: METHYLPREDNISOLONE SOD SUCC 40MG/ML 1ML IVP SCH ×4 (02:24→17:22)
[2018-11-22] MEDS: FUROSEMIDE 10 MG/ML 2ML VIAL IV SCH ×3 (02:25→17:23)
[2018-11-22 04:00] LABS: HEMATOCRIT 28.1 % (36-48); MEAN CORPUSCULAR HEMOGLOBIN 33.7 pg (27.0-33.0); MEAN CORPUSCULAR HGB CONC 33.7 g/dL (32.0-36.0); MEAN CORPUSCULAR VOLUME 99.9 fL (79-99); PLATELET COUNT (AUTO) 93 K/uL (130-400); RED BLOOD CELL COUNT(AUTO) 2.81 MIL/uL (4.00-5.50); RED CELL DISTRIBUTION WIDTH 14.4 % (11.0-15.5); WHITE BLOOD COUNT (AUTO) 7.4 K/uL (4.8-10.8)
[2018-11-22 04:03] LABS: CREATININE 2.9 mg/dL (0.5-1.5)
[2018-11-22 05:16] VITALS: BP 134/78
[2018-11-22] MEDS: MIDODRINE HCL 5 MG TABLET PO SCH ×3 (05:29→21:09)
[2018-11-22] MEDS: ALBUTEROL SULFATE 0.083% 2.5 MG/3 ML INH IH SCH ×4 (06:01→23:08)
[2018-11-22] MEDS: LEVOTHYROXINE 100 MCG TABLET PO SCH (06:54)
[2018-11-22] MEDS: LEVOTHYROXINE 75 MCG TABLET PO SCH (06:54)
[2018-11-22] MEDS: INSULIN HUMULIN R 100 UNIT/ML 3ML SQ SCH ×4 (06:55→21:34)
[2018-11-22 07:53] VITALS: BP 126/80
[2018-11-22] MEDS: **HM** VIT D3 25MCG PO SCH (09:00)
[2018-11-22] MEDS: FOLIC ACID/VITAMIN B COMP W-C 1 MG CAP/TAB PO SCH (10:35)
[2018-11-22] MEDS: CETIRIZINE HCL 5 MG TABLET PO SCH (10:35)
[2018-11-22] MEDS: FERROUS SULFATE 325 MG TABLET.DR PO SCH (10:35)
[2018-11-22] MEDS: FAMOTIDINE 20MG TAB 20 MG TAB PO SCH ×2 (10:35→21:09)
[2018-11-22] MEDS: LACTULOSE 20 GM/30 ML UDCUP PO SCH ×2 (10:35→21:10)
[2018-11-22] MEDS ORDERED: ALBUMIN (HUMAN) 25% 100 ML IV SCH (11:00)
[2018-11-22] MEDS: OCTREOTIDE ACETATE 100 MCG/ML AMP SQ SCH (11:10)
[2018-11-22 11:35] VITALS: BP 119/57
[2018-11-22 16:13] VITALS: BP 137/90
[2018-11-22] MEDS: LEVOFLOXACIN 250 MG/D5W 50ML 50 ML IV SCH (17:19)
[2018-11-22 20:12] VITALS: BP 128/82
[2018-11-23] VITALS (13 sets, daily range): BP systolic 120–139; BP diastolic 68–87
[2018-11-23] MEDS: METHYLPREDNISOLONE SOD SUCC 40MG/ML 1ML IVP SCH ×3 (03:20→11:32)
[2018-11-23] MEDS: FUROSEMIDE 10 MG/ML 2ML VIAL IV SCH ×3 (03:21→18:25)
[2018-11-23 03:43] LABS: POTASSIUM 3.9 mmol/L (3.5-5.1)
[2018-11-23 03:47] LABS: HEMATOCRIT 28.9 % (36-48); MEAN CORPUSCULAR HEMOGLOBIN 34.4 pg (27.0-33.0); MEAN CORPUSCULAR HGB CONC 34.4 g/dL (32.0-36.0); MEAN CORPUSCULAR VOLUME 100.2 fL (79-99); NUCLEATED RED BLOOD CELLS 0.2 % (0.0-0.19); PLATELET COUNT (AUTO) 86 K/uL (130-400); RED BLOOD CELL COUNT(AUTO) 2.89 MIL/uL (4.00-5.50); RED CELL DISTRIBUTION WIDTH 14.3 % (11.0-15.5); WHITE BLOOD COUNT (AUTO) 8.5 K/uL (4.8-10.8)
--- NOTE | 2018-11-23 05:03 | NUR ---
PATIENT RESTING IN BED. ALERT AND ORIENTED REMAINS LETHARGIC BUT AWAKES EASILY. CONTINUES TO HAVE ANASARCA. MONTANEZ WITH CBI REMAINS IN PLACE. URINE IS DARK YELLOW WITH SEDIMENT, DRAINING. LACTULOSE AND OTHER PILLS AT BEDSIDE FROM DAY SHIFT. PATIENT TAKING SCHEDULED NIGHT LACTULOSE WITH HESITANCY BECAUSE OF TASTE. WILL CONTINUE TO MONITOR
[2018-11-23] MEDS: ALBUTEROL SULFATE 0.083% 2.5 MG/3 ML INH IH SCH ×3 (05:44→18:56)
[2018-11-23] MEDS: LEVOTHYROXINE 75 MCG TABLET PO SCH (06:28)
[2018-11-23] MEDS: MIDODRINE HCL 5 MG TABLET PO SCH ×3 (06:28→21:18)
[2018-11-23] MEDS: LEVOTHYROXINE 100 MCG TABLET PO SCH (06:31)
[2018-11-23] MEDS: INSULIN HUMULIN R 100 UNIT/ML 3ML SQ SCH ×4 (06:49→21:32)
[2018-11-23 09:00] LABS: INR 1.5 (0.85-1.15); PROTHROMBIN TIME 15.5 SEC (9.6-11.6)
[2018-11-23] MEDS: **HM** VIT D3 25MCG PO SCH (09:00)
--- NOTE | 2018-11-23 09:15 | NUR ---
AM ASSESSMENT PT LAYING IN BED, HOB ELEVATED 30 DEGREES, RESTING. A/O X 3. SOB ON EXERTION. UNABLE TO LIE FLAT. O2 NC @ 2L. DENIES CHEST PAIN OR DISCOMFORT. DENIES PALPITATIONS. TELE: SR. DENIES N/V AND/OR DIARRHEA. 16 FR 3-WAY MONTANEZ CATHETER PATENT & DRAINING, DARK MICHEAL URINE. (-) HEMATURIA. CBI PORT DISCONTINUED @ THIS TIME. CATHETER PLUG PLACED ON CBI PORT. GENERALIZED EDEMA. BEDREST. INSTRUCTED TO CALL FOR ASSISTANCE. CALL SHAHNAZ W/IN REACH.
[2018-11-23] MEDS: LACTULOSE 20 GM/30 ML UDCUP PO SCH ×2 (10:29→21:17)
[2018-11-23] MEDS: FAMOTIDINE 20MG TAB 20 MG TAB PO SCH ×2 (10:29→21:18)
[2018-11-23] MEDS: CETIRIZINE HCL 5 MG TABLET PO SCH (10:29)
[2018-11-23] MEDS: OCTREOTIDE ACETATE 100 MCG/ML AMP SQ SCH ×3 (10:29→21:18)
[2018-11-23] MEDS: FOLIC ACID/VITAMIN B COMP W-C 1 MG CAP/TAB PO SCH (10:29)
[2018-11-23] MEDS: FERROUS SULFATE 325 MG TABLET.DR PO SCH (10:29)
--- NOTE | 2018-11-23 13:47 | NUR ---
MD VISIT DR FARNSWORTH IN TO SEE PT, FAMILY @ BEDSIDE. PLAN OF CARE DISCUSSED W/PT & FAMILY. PT INFORMED PLAN FOR PARACENTESIS TODAY. ORDERS RECEIVED ENTERED. IR NURSE, SHAWNA, NOTIFIED.
--- NOTE | 2018-11-23 14:25 | NUR ---
STATUS PT TAKEN TO IR FOR PARACENTESIS VIA BED W/O2 NC @ 2L. FAMILY TO WAIT FOR PT TO RETURN IN PT'S RM.
--- NOTE | 2018-11-23 15:30 | NUR ---
U/S GD PARACENTESIS PROCEDURE PERFORMED BY DR Venessa BAKER. PUNCTURE SITE RLQ AND PATIENT TOLERATED PROCEDURE WELL. TOTAL REMOVED 2 LITERS OF CLOUDY YELLOW FLUID. END OF PROCEDURE AT 1515. CATHETER REMOVED AND DRESSING APPLIED. NO BLEEDING NOTED. REPORT GIVEN TO Anson GAYTAN RN AND PATIENT TRANSPORTED TO [facility] [place] VIA BED AT 1530. AAO X3 WITH NO C/O PAIN.
--- NOTE | 2018-11-23 15:30 | NUR ---
STATUS PT RECEIVED FROM IR VIA BED, S/P PARACENTESIS RLQ. 2 L REMOVED. DSG RLQ DRY & INTACT. NO DRAINAGE NOTED. NO SOB. NO DISTRESS NOTED. O2 NC @ 2L. INSTRUCTED TO CALL FOR ASSISTANCE. CALL SHAHNAZ W/IN REACH.
--- NOTE | 2018-11-23 15:42 | NUR ---
RD NOTIFICATION HX: HEPATORENAL SYNDROME, CHF, ANASARCA. DIET: RENAL NON-DIALYSIS, 75GMCCD. LBM: 11/22. PENDING PARACENTESIS. SKIN INTACT, POSITIVE FOR ASCITES, 3+ BLE PITTING EDEMA. PT IS A POOR CANDIDATE FOR DIALYSIS PER DR ASTRID. PT WITH SOB, CLAIMS TO BE HAVING EMESIS AND DIARRHEA. PO INTAKE 0-25%, AND HAS POOR APPETITE. PT CLAIMS THAT SHE IS NOT ABLE TO TOLERATE FOOD [id number]. RD RECOMMENDS TO CONTINUE CURRENT DIET. OFFER NEPRO AT ALL MEALS. ADD FLUID RESTRICTION TO DIET ORDER. RD WILL CONTINUE TO MONITOR AND FOLLOW UP NEEDED. THANK YOU. Addendum: 11/23/18 at [address] Amended: Links added.
[2018-11-24] MEDS: ALBUTEROL SULFATE 0.083% 2.5 MG/3 ML INH IH SCH ×5 (00:11→23:27)
[2018-11-24] MEDS: FUROSEMIDE 10 MG/ML 2ML VIAL IV SCH ×3 (02:09→17:50)
[2018-11-24 03:49] LABS: HEMATOCRIT 30.2 % (36-48); MEAN CORPUSCULAR HEMOGLOBIN 34.1 pg (27.0-33.0); MEAN CORPUSCULAR VOLUME 100.2 fL (79-99); NUCLEATED RED BLOOD CELLS 0.3 % (0.0-0.19); PLATELET COUNT (AUTO) 86 K/uL (130-400); RED BLOOD CELL COUNT(AUTO) 3.01 MIL/uL (4.00-5.50); RED CELL DISTRIBUTION WIDTH 14.4 % (11.0-15.5); WHITE BLOOD COUNT (AUTO) 7.8 K/uL (4.8-10.8)
[2018-11-24 04:00] VITALS: BP 136/75
[2018-11-24 04:07] LABS: CREATININE 2.8 mg/dL (0.5-1.5); POTASSIUM 3.9 mmol/L (3.5-5.1)
[2018-11-24] MEDS: OCTREOTIDE ACETATE 100 MCG/ML AMP SQ SCH ×3 (05:54→22:07)
[2018-11-24] MEDS: LEVOTHYROXINE 75 MCG TABLET PO SCH (05:55)
[2018-11-24] MEDS: LEVOTHYROXINE 100 MCG TABLET PO SCH (05:55)
[2018-11-24] MEDS: MIDODRINE HCL 5 MG TABLET PO SCH ×3 (05:55→22:07)
[2018-11-24] MEDS: INSULIN HUMULIN R 100 UNIT/ML 3ML SQ SCH ×4 (06:17→20:59)
[2018-11-24 07:43] VITALS: BP 123/73
[2018-11-24] MEDS: FAMOTIDINE 20MG TAB 20 MG TAB PO SCH ×2 (08:26→20:57)
[2018-11-24] MEDS: FOLIC ACID/VITAMIN B COMP W-C 1 MG CAP/TAB PO SCH (08:26)
[2018-11-24] MEDS: FERROUS SULFATE 325 MG TABLET.DR PO SCH (08:26)
[2018-11-24] MEDS: CETIRIZINE HCL 5 MG TABLET PO SCH (08:26)
[2018-11-24] MEDS: LACTULOSE 20 GM/30 ML UDCUP PO SCH ×2 (08:27→20:57)
[2018-11-24] MEDS: **HM** VIT D3 25MCG PO SCH (08:27)
[2018-11-24 11:47] VITALS: BP 132/75
[2018-11-24 15:04] VITALS: BP 132/71
[2018-11-24] MEDS: LEVOFLOXACIN 250 MG/D5W 50ML 50 ML IV SCH (17:43)
[2018-11-24 19:14] VITALS: BP 143/74
[2018-11-24 23:27] VITALS: BP 145/82
[2018-11-25] MEDS: FUROSEMIDE 10 MG/ML 2ML VIAL IV SCH ×2 (01:25→10:01)
[2018-11-25 03:02] VITALS: BP 122/66
[2018-11-25 04:26] LABS: HEMATOCRIT 30.2 % (36-48); MEAN CORPUSCULAR HEMOGLOBIN 34.6 pg (27.0-33.0); MEAN CORPUSCULAR HGB CONC 34.1 g/dL (32.0-36.0); MEAN CORPUSCULAR VOLUME 101.5 fL (79-99); NUCLEATED RED BLOOD CELLS 0.2 % (0.0-0.19); PLATELET COUNT (AUTO) 78 K/uL (130-400); RED BLOOD CELL COUNT(AUTO) 2.98 MIL/uL (4.00-5.50); RED CELL DISTRIBUTION WIDTH 14.8 % (11.0-15.5); WHITE BLOOD COUNT (AUTO) 10.6 K/uL (4.8-10.8)
[2018-11-25 04:29] LABS: BILIRUBIN,TOTAL 2.4 mg/dL (0.2-1.0); CREATININE 2.6 mg/dL (0.5-1.5); POTASSIUM 3.6 mmol/L (3.5-5.1); TOTAL PROTEIN, SERUM 7.1 g/dL (6.0-8.3)
[2018-11-25] MEDS: MIDODRINE HCL 5 MG TABLET PO SCH ×3 (05:59→22:36)
[2018-11-25] MEDS: LEVOTHYROXINE 100 MCG TABLET PO SCH (05:59)
[2018-11-25] MEDS: OCTREOTIDE ACETATE 100 MCG/ML AMP SQ SCH ×3 (06:00→22:36)
[2018-11-25] MEDS: LEVOTHYROXINE 75 MCG TABLET PO SCH (06:00)
[2018-11-25] MEDS: INSULIN HUMULIN R 100 UNIT/ML 3ML SQ SCH ×3 (06:01→22:46)
[2018-11-25 07:08] VITALS: BP 128/70
[2018-11-25] MEDS: ALBUTEROL SULFATE 0.083% 2.5 MG/3 ML INH IH SCH ×4 (07:28→23:09)
[2018-11-25] MEDS: **HM** VIT D3 25MCG PO SCH (08:19)
[2018-11-25] MEDS: FAMOTIDINE 20MG TAB 20 MG TAB PO SCH ×2 (10:00→21:14)
[2018-11-25] MEDS: FOLIC ACID/VITAMIN B COMP W-C 1 MG CAP/TAB PO SCH (10:00)
[2018-11-25] MEDS: CETIRIZINE HCL 5 MG TABLET PO SCH (10:00)
[2018-11-25] MEDS: LACTULOSE 20 GM/30 ML UDCUP PO SCH ×2 (10:00→22:36)
[2018-11-25] MEDS: FERROUS SULFATE 325 MG TABLET.DR PO SCH (10:00)
--- NOTE | 2018-11-25 10:26 | NUR ---
DC PLAN PATIENT HAD BEEN WANTING TO GO HOME BUT HAS NOT BEEN VERY MOBILE. DR. FARNSWORTH CONVINCED PATIENT TO GO TO FACILITY. PATIENT SAID OKAY SIGNED FAUZIA. INFO SENT TO [facility]. JACLYN AWARE AND SUBMITTED 11/24 IN THE AFTERNOON. CALLED THIS MORNING PENDING AUTH. VISHNU DONE PATIENT TO DC TODAY IF AUTH GIVEN.
[2018-11-25 11:00] VITALS: BP 135/69
--- NOTE | 2018-11-25 13:52 | NUR ---
RD NOTIFICATION/ FOLLOW UP DX: ANASARCA, CKD, CHF. DIET: RENAL NON- DIALYSIS, FLUID RESTRICTION 1200MLS/D, NEPRO TID. SKIN INTACT, 3+ PITTING EDEMA. FLUID RETENTION IMPROVING. PO INTAKE 25% AND HAS POOR APPETITE PER PT AND FAMILY. PT LOOKING MORE ALERT AND IN BETTER CONDITION COMPARED TO PREVIOUS VISIT. PT STILL NOT ABLE TO TOLERATE FOOD WELL. PT STATED SHE DOES NOT LIKE THE TASTE OF NEPRO SUPPLEMENT; INSTEAD SHE WOULD LIKE TO TRY GLUCERNA. PT PREFERS SUPPLEMENT VERSUS FOOD [id number]. RD RECOMMENDS CONTINUE CURRENT DIET. OFFER GLUCERNA AT ALL MEALS. D/C NEPRO. RD WILL CONTINUE TO MONITOR AND FOLLOW UP NEEDED. THANK YOU. Addendum: 11/25/18 at [address] Amended: Links added.
[2018-11-25 15:11] VITALS: BP 140/71
[2018-11-25] MEDS ORDERED: OCTR100A SQ (16:29)
[2018-11-25] MEDS ORDERED: LEVO100T4 PO (16:29)
[2018-11-25] MEDS ORDERED: LEVO500T2 PO (16:29)
[2018-11-25] MEDS ORDERED: FERR324T4 PO (16:29)
--- NOTE | 2018-11-25 17:02 | NUR ---
MELISSA SORIANO [facility] EMAILED SAID PATIENT ACCEPTED AT 1630 LET NURSE KNOW. VISHNU DONE. FAXED EMS PAPERWORK TO [facility]. Addendum: 11/25/18 at 1704 by ABILIO CAI RN CM Amended: Links added.
[2018-11-25 20:09] VITALS: BP 119/59
[2018-11-25 23:49] VITALS: BP 122/60
[2018-11-26] MEDS: FUROSEMIDE 10 MG/ML 2ML VIAL IV SCH ×2 (02:06→07:18)
[2018-11-26 04:36] VITALS: BP 115/53
[2018-11-26] MEDS: OCTREOTIDE ACETATE 100 MCG/ML AMP SQ SCH (06:01)
[2018-11-26] MEDS: MIDODRINE HCL 5 MG TABLET PO SCH (06:01)
[2018-11-26] MEDS: LEVOTHYROXINE 75 MCG TABLET PO SCH (06:01)
[2018-11-26] MEDS: LEVOTHYROXINE 100 MCG TABLET PO SCH (06:01)
[2018-11-26] MEDS: INSULIN HUMULIN R 100 UNIT/ML 3ML SQ SCH (06:02)
[2018-11-26] MEDS: ALBUTEROL SULFATE 0.083% 2.5 MG/3 ML INH IH SCH ×2 (06:11→11:09)
[2018-11-26 07:13] VITALS: BP 123/60
[2018-11-26] MEDS: CETIRIZINE HCL 5 MG TABLET PO SCH (07:18)
[2018-11-26] MEDS: LACTULOSE 20 GM/30 ML UDCUP PO SCH (07:18)
[2018-11-26] MEDS: **HM** VIT D3 25MCG PO SCH (07:18)
[2018-11-26] MEDS: FAMOTIDINE 20MG TAB 20 MG TAB PO SCH (07:18)
[2018-11-26] MEDS: FOLIC ACID/VITAMIN B COMP W-C 1 MG CAP/TAB PO SCH (07:18)
[2018-11-26] MEDS: FERROUS SULFATE 325 MG TABLET.DR PO SCH (07:18)
--- NOTE | 2018-11-26 08:15 | NUR ---
ASSESSMENT PT IS AAOX3 DENIES CP DENIES SOB DENIES NV. AM MEDS GIVEN, NO VISIBLE SIGNS OF DISTRESS NOTED. CALL LIGHT WITHIN REACH.
--- NOTE | 2018-11-26 10:30 | NUR ---
REPORT GIVEN TO KATYA HOWARD AT [facility] AWAITING EMS TRANSPORT PICKUP. TELE PACK REMOVED, IV REMOVED CATH TIP INTACT.
--- NOTE | 2018-11-26 11:55 | NUR ---
DISCHARGE TO [facility] VIA STRETCHER WITH EMS. ALL BELONGINGS TAKEN. DC PACKET GIVEN TO EMS STAFF.
== END 2018-11-26 11:59 | DRG 432 ==
LOC: EDH 10:27 → EDHIP 11:07 → OBSVTOIN 11:07 → 2AH 12:30
PROVIDERS: ADMIT Internal Medicine Critical Care Medicine; ATTEND Internal Medicine Critical Care Medicine
PROC: 0W9G3ZZ Drainage of Peritoneal Cavity, Percutaneous Approach (ICD-10-PCS; principal; 2018-11-23)
DX: K74.60 Unspecified cirrhosis of liver (principal); K76.7 Hepatorenal syndrome; N17.9 Acute kidney failure, unspecified; E87.1 Hypo-osmolality and hyponatremia; I13.0 Hypertensive heart and chronic kidney disease with heart failure and stage 1 through stage 4 chronic kidney disease, or unspecified chronic kidney disease; J44.1 Chronic obstructive pulmonary disease with (acute) exacerbation; N39.0 Urinary tract infection, site not specified; R18.8 Other ascites; E87.0 Hyperosmolality and hypernatremia; D61.818 Other pancytopenia; I50.32 Chronic diastolic (congestive) heart failure; D69.6 Thrombocytopenia, unspecified; R31.0 Gross hematuria; D64.9 Anemia, unspecified; B96.20 Unspecified Escherichia coli [E. coli] as the cause of diseases classified elsewhere; E03.9 Hypothyroidism, unspecified; E11.21 Type 2 diabetes mellitus with diabetic nephropathy; E11.22 Type 2 diabetes mellitus with diabetic chronic kidney disease; E11.51 Type 2 diabetes mellitus with diabetic peripheral angiopathy without gangrene; E66.9 Obesity, unspecified; Z68.36 Body mass index [BMI] 36.0-36.9, adult; E78.5 Hyperlipidemia, unspecified; I25.10 Atherosclerotic heart disease of native coronary artery without angina pectoris; K76.0 Fatty (change of) liver, not elsewhere classified; N18.9 Chronic kidney disease, unspecified; Z79.4 Long term (current) use of insulin; Z79.82 Long term (current) use of aspirin; Z88.0 Allergy status to penicillin; Z95.5 Presence of coronary angioplasty implant and graft; I95.9 Hypotension, unspecified
CPT/HCPCS: 36415; 49083; 71045; 71250; 74018; 74176; 80048; 80053; 81001; 82140; 82948; 83735; 83880; 83935; 84100; 84300; 84443; 84550; 85025; 85027; 85378; 85610; 85730; 87077; 87088; 87186; 93970; 94640; 94664; 94760; 97039; A4357; G0378; J1815; J1940; J1956; J2354; J2405; J2920; J2930; P9046

== ENCOUNTER → 2018-12-13 | Outpatient (CLI) | payer OTHER, MEDICARE ==
[~2018-12-13] MED LIST changes: +ALBUMIN (HUMAN) 25% 200 ML IV ONE; -ATOR20TA65 PO; +FERR324T4 PO; -FERR325T22 PO; +LEVO100T4 PO; -LEVO175T9 PO; +LEVO500T2 PO; +OCTR100A SQ
[2018-12-13 10:26] LABS: BASOPHILS % (AUTO) 1.1 % (0.0-5.0); EOSINOPHILS % (AUTO) 2.3 % (0.0-8.0); HEMATOCRIT 30.5 % (36-48); LYMPHOCYTES % (AUTO) 11.7 % (21.0-51.0); MEAN CORPUSCULAR HEMOGLOBIN 34.9 pg (27.0-33.0); MEAN CORPUSCULAR HGB CONC 33.5 g/dL (32.0-36.0); MEAN CORPUSCULAR VOLUME 104.2 fL (79-99); MONOCYTES % (AUTO) 14.4 % (3.0-13.0); NEUTROPHILS % (AUTO) 70.5 % (40.0-77.0); PLATELET COUNT (AUTO) 185 K/uL (130-400); RED BLOOD CELL COUNT(AUTO) 2.92 MIL/uL (4.00-5.50); RED CELL DISTRIBUTION WIDTH 21.4 % (11.0-15.5); WHITE BLOOD COUNT (AUTO) 7.2 K/uL (4.8-10.8)
[2018-12-13 10:42] LABS: INR 1.24 (0.85-1.15); PROTHROMBIN TIME 12.9 SEC (9.6-11.6)
[2018-12-13 10:47] LABS: ALBUMIN 2.5 g/dL (3.5-5.0); BILIRUBIN,TOTAL 11.3 mg/dL (0.2-1.0); CREATININE 2.6 mg/dL (0.5-1.5); POTASSIUM 4.4 mmol/L (3.5-5.1); TOTAL PROTEIN, SERUM 6.3 g/dL (6.0-8.3)
--- NOTE | 2018-12-13 12:15 | NUR ---
U/S GD PARACENTESIS PROCEDURE PERFORMED BY DR Ana KLINE. PUNCTURE SITE LLQ AND PATIENT TOLERATED PROCEDURE WELL. TOTAL REMOVED 4.5 LITERS OF CLEAR YELLOW FLUID. ALBUMIN 25% 25 GRAMS IV GIVEN DURING PROCEDURE. SPECIMEN SENT TO LAB. END OF PROCEDURE AT 1150. CATHETER REMOVED AND DRESSING APPLIED. NO BLEEDING NOTED. DISCHARGE INSTRUCTIONS GIVEN TO PATIENT AND VERBALIZED UNDERSTANDING. DISCHARGED VIA W/C T 1215. AAO X3 WITH NO C/O PAIN.
[2018-12-13 15:56] LABS: APPEARANCE BODY FLUID SLIGHTLY CLOUDY (CLEAR); BF LYMPHOCYTE 28 %; BF MESOTHELIAL 18 %; BF MONOCYTE 7 %; COLOR,BODY FLUID YELLOW (LT YELLOW); SPECIMENTYPE,BODY FLUID ASCITES
[2018-12-13 15:57] LABS: BODY FLUID RBC 66 /cu. mm.; BODY FLUID WBC 59 /cu. mm.; TOTAL VOLUME,BODY FLUID 4500 mL
== END ==
LOC: RAH 09:40
PROVIDERS: ATTEND Internal Medicine Gastroenterology
DX: K74.60 Unspecified cirrhosis of liver (principal); R18.8 Other ascites
CPT/HCPCS: 36415; 49083; 80053; 85025; 85610; 87071; 87205; 89051; A4215; P9046

== ENCOUNTER 2018-12-21 10:02 | Inpatient (IN) | payer OTHER, MEDICARE ==
[~2018-12-21] VITALS: Ht 144.8 cm; Wt 70.9 kg
[~2018-12-21 10:02] MED LIST changes: -ALBUMIN (HUMAN) 25% 200 ML IV ONE
[2018-12-21 10:22] LABS: BASOPHILS % (AUTO) 0.1 % (0.0-5.0); EOSINOPHILS % (AUTO) 0.4 % (0.0-8.0); HEMATOCRIT 37.5 % (36-48); LYMPHOCYTES % (AUTO) 12.1 % (21.0-51.0); MEAN CORPUSCULAR HEMOGLOBIN 35.2 pg (27.0-33.0); MEAN CORPUSCULAR HGB CONC 33.8 g/dL (32.0-36.0); MEAN CORPUSCULAR VOLUME 104.1 fL (79-99); MONOCYTES % (AUTO) 10.5 % (3.0-13.0); NEUTROPHILS % (AUTO) 76.9 % (40.0-77.0); PLATELET COUNT (AUTO) 149 K/uL (130-400); RED CELL DISTRIBUTION WIDTH 22.6 % (11.0-15.5); WHITE BLOOD COUNT (AUTO) 8.1 K/uL (4.8-10.8)
[2018-12-21] MEDS ORDERED: LACTULOSE 20 GM/30 ML UDCUP ONE (10:25)
[2018-12-21 10:38] LABS: ALBUMIN 2.4 g/dL (3.5-5.0); CREATININE 3.2 mg/dL (0.5-1.5); POTASSIUM 3.8 mmol/L (3.5-5.1); TOTAL PROTEIN, SERUM 6.5 g/dL (6.0-8.3)
[2018-12-21 10:47] LABS: BILIRUBIN,TOTAL 17.7 mg/dL (0.2-1.0)
[2018-12-21 12:15] LABS: APPEARANCE,URINE CLOUDY (CLEAR); BILIRUBIN,URINE MODERATE (NEGATIVE); COLOR,URINE YELLOW (YELLOW); GLUCOSE, URINE (UA) NEGATIVE (NEGATIVE); KETONES,URINE NEGATIVE (NEGATIVE); LEUKOCYTE ESTERASE ,URINE MODERATE (NEGATIVE); NITRATE,URINE NEGATIVE (NEGATIVE); OCCULT BLOOD,URINE TRACE-INTACT (NEGATIVE); PROTEIN,URINE NEGATIVE (NEGATIVE); UROBILINOGEN,URINE 0.2 mg/dL (0.2-1.0)
[2018-12-21 12:25] LABS: ABG BASE EXCESS -3.5 mmol/L (-2.0-3.0); ABG HCO3 19.2 mmol/L (21.0-28.0); ABG OXYGEN SATURATION 96.7 % (95.0-99.0); ABG PCO2 29 mmHg (32-45)
[2018-12-21 12:31] LABS: BACTERIA,URINE Many /HPF (None Seen); MUCUS,URINE Few LPF (None Seen); RBC,URINE 0-1 /HPF (0-1); SQUAMOUS EPITHELIAL CELL,UR Rare /HPF (0-2); WBC,URINE 51-100 /HPF (0-1)
[2018-12-21 12:33] LABS: INR 1.43 (0.85-1.15); PARTIAL THROMBOPLASTIN TIME 39.2 SEC (26.3-35.5); PROTHROMBIN TIME 14.8 SEC (9.6-11.6)
[2018-12-21 12:45] LABS: TROPONIN I 0.06 ng/mL (0.00-0.06)
[2018-12-21] MEDS ORDERED: LEVOFLOXACIN 500 MG/D5W 100 ML 100 ML ONE (12:58)
[2018-12-21] MEDS ORDERED: SODIUM CHLORIDE 0.9% 500ML 500 ML IV ONE (12:58)
[2018-12-21] MEDS ORDERED: SODIUM CHLORIDE 0.9% 1000ML 1,000 ML IV ONE ×2 (13:42→15:03)
[2018-12-21] MEDS ORDERED: CEFEPIME HCL 2 GM VIAL ONE (14:20)
[2018-12-21] MEDS ORDERED: SODIUM CHLORIDE 0.9% 100 ML IV ONE ×2 (14:20→14:22)
[2018-12-21] MEDS ORDERED: COMPOUND IV REFRIGERATED 1 EACH IVSOLN MISC PRN (18:15)
[2018-12-21] MEDS ORDERED: VANCOMYCIN 1GM+NS 250ML 250 ML IV SCH (18:15)
[2018-12-21] MEDS ORDERED: SODIUM CHLORIDE 0.9% 1000ML 1,000 ML IV SCH (18:30)
[2018-12-21] MEDS ORDERED: IPRATROPIUM/ALBUTEROL SULFATE 3 ML SOLUTION IH ONE (19:54)
[2018-12-21] MEDS: IPRATROPIUM/ALBUTEROL SULFATE 3 ML SOLUTION IH PRN (19:57)
[2018-12-21] MEDS ORDERED: FUROSEMIDE 10 MG/ML 2ML VIAL IV SCH (20:00)
[2018-12-21] MEDS ORDERED: VANCOMYCIN 1GM+NS 250ML 250 ML IV ONE (20:03)
[2018-12-21] MEDS ORDERED: FUROSEMIDE 10 MG/ML 2ML VIAL ONE (20:03)
[2018-12-21] MEDS ORDERED: FURO20TA4 PO (22:39)
[2018-12-21] MEDS ORDERED: BENZ200C53 PO (22:39)
[2018-12-21] MEDS ORDERED: PANT40TA25 PO (22:39)
[2018-12-21] MEDS ORDERED: RIFA550T PO (22:39)
[2018-12-21] MEDS ORDERED: FOLI1TAB85 PO (22:39)
[2018-12-21] MEDS ORDERED: MIDO10TA PO (22:39)
[2018-12-22] VITALS (7 sets, daily range): BP systolic 90–118; BP diastolic 49–64
[2018-12-22 05:09] LABS: HEMATOCRIT 34.1 % (36-48); MEAN CORPUSCULAR HEMOGLOBIN 35.2 pg (27.0-33.0); MEAN CORPUSCULAR HGB CONC 34.1 g/dL (32.0-36.0); PLATELET COUNT (AUTO) 126 K/uL (130-400); RED BLOOD CELL COUNT(AUTO) 3.31 MIL/uL (4.00-5.50); RED CELL DISTRIBUTION WIDTH 22.4 % (11.0-15.5); WHITE BLOOD COUNT (AUTO) 9.5 K/uL (4.8-10.8)
[2018-12-22 05:21] LABS: BAND NEUTROPHILS % (MANUAL) 5 % (0-2); EOSINOPHILS % (MANUAL) 1 % (1-6); LYMPHOCYTES % (MANUAL) 12 % (22-44); MONOCYTES % (MANUAL) 3 % (2-9); SEGMENTED NEUTROPHILS % 79 % (40-70)
[2018-12-22 05:22] LABS: MAN.DIFF COMMENT-IMPRESSION MANUAL DIFFERENTIAL; PLATELET MORPHOLOGY COMMENT ADEQUATE
[2018-12-22 05:35] LABS: ALBUMIN 2.2 g/dL (3.5-5.0); POTASSIUM 4.5 mmol/L (3.5-5.1)
[2018-12-22 05:47] LABS: BILIRUBIN,TOTAL 18.2 mg/dL (0.2-1.0)
[2018-12-22] MEDS ORDERED: IPRATROPIUM/ALBUTEROL SULFATE 3 ML SOLUTION IH ONE (06:49)
[2018-12-22] MEDS: IPRATROPIUM/ALBUTEROL SULFATE 3 ML SOLUTION IH PRN ×2 (06:51→19:06)
[2018-12-22] MEDS ORDERED: ONDANSETRON HCL 4 MG/2 ML VIAL IVP PRN (09:45)
[2018-12-22] MEDS ORDERED: SODIUM CHLORIDE 0.9% 1000ML 1,000 ML IV ONE (09:59)
[2018-12-22] MEDS ORDERED: ONDANSETRON HCL 4 MG/2 ML VIAL ONE (09:59)
--- NOTE | 2018-12-22 10:05 | NUR ---
ZOFRAN ADMINISTERED SIVP FOR NAUSEA.
--- NOTE | 2018-12-22 11:52 | NUR ---
LEANDRA RANGEL, IN ROOM SPEAKING WITH PT. AND PT.'S DAUGHTER AT BEDSIDE RE:PLAN OF CARE. QUESTIONS ANSWERED BY LEANDRA RANGEL.
[2018-12-22] MEDS ORDERED: DEXTROSE 50%-WATER 50 ML DISP.SYRIN IV ONE (12:02)
--- NOTE | 2018-12-22 12:09 | NUR ---
D50 GIVEN SIVP ORDERED.
[2018-12-22] MEDS ORDERED: DEXTROSE 50%-WATER 50 ML DISP.SYRIN IV PRN (12:15)
[2018-12-22] MEDS ORDERED: GLUCAGON 1MG KIT 1 MG ML IM PRN (12:15)
[2018-12-22] MEDS: INSULIN HUMULIN R 100 UNIT/ML 3ML SQ SCH ×2 (12:15→17:46)
[2018-12-22 12:30] LABS: ABG HCO3 19.5 mmol/L (21.0-28.0); ABG OXYGEN SATURATION 94.9 % (95.0-99.0); ABG PCO2 35 mmHg (32-45)
[2018-12-22] MEDS: DEXTROSE 5 % AND 0.9 % NACL 1,000 ML IV SCH (12:57)
[2018-12-22] MEDS ORDERED: DEXTROSE 5 % AND 0.9 % NACL 1,000 ML IV ONE (12:57)
[2018-12-22] MEDS ORDERED: ALBUMIN (HUMAN) 25% 50 ML IV ONE (14:04)
[2018-12-22] MEDS ORDERED: OCTREOTIDE ACETATE 100 MCG/ML AMP ONE (14:05)
[2018-12-22] MEDS: OCTREOTIDE ACETATE 100 MCG/ML AMP SQ SCH ×2 (14:12→21:00)
[2018-12-22] MEDS: ALBUMIN (HUMAN) 25% 50 ML IV SCH ×2 (14:16→21:00)
--- NOTE | 2018-12-22 18:00 | NUR ---
NEPHROLOGY Dr. Lindquist paged for consult for renal failure. Pending for him to call back.
--- NOTE | 2018-12-22 19:10 | NUR ---
GASTROENTEROLOGY CONSULT Dr. Rai was notified of consult over the phone and he is aware.
--- NOTE | 2018-12-22 19:30 | NUR ---
glucometer bs 44, 25 gm dextrose iv administered.
--- NOTE | 2018-12-22 20:23 | NUR ---
Glucometer recheck 130
--- NOTE | 2018-12-22 20:27 | NUR ---
MRCP Consent for MRCP pending. Family states patient has a special stent in her heart and that MRI staff needs to be informed every time patient is to have an MRI. Sister will bring paper with information. Night nurse Jimmy is aware.
--- NOTE | 2018-12-22 20:29 | NUR ---
NEPHROLOGY Doctor repaged. Neds to be notifed of consult. Pending to call back.
--- NOTE | 2018-12-22 22:00 | NUR ---
Dr Rai in to evaluate patient, EGD ordered for tomorrow 12/23/18 1300 hr
[2018-12-22] MEDS ORDERED: LACTULOSE 20 GM/30 ML UDCUP ONE (22:25)
[2018-12-22] MEDS ORDERED: ALBUMIN (HUMAN) 25% 0 ML IV ONE (22:26)
[2018-12-22] MEDS: LACTULOSE 20 GM/30 ML UDCUP PO SCH (22:40)
[2018-12-23] MEDS: INSULIN HUMULIN R 100 UNIT/ML 3ML SQ SCH ×4 (00:15→18:15)
[2018-12-23] MEDS: LACTULOSE 20 GM/30 ML UDCUP PO SCH ×5 (03:32→20:00)
[2018-12-23 03:59] VITALS: BP 95/55
[2018-12-23 04:23] LABS: BASOPHILS % (AUTO) 0.1 % (0.0-5.0); EOSINOPHILS % (AUTO) 0.3 % (0.0-8.0); HEMATOCRIT 30.2 % (36-48); LYMPHOCYTES % (AUTO) 6.2 % (21.0-51.0); MEAN CORPUSCULAR HEMOGLOBIN 35.9 pg (27.0-33.0); MEAN CORPUSCULAR HGB CONC 34.1 g/dL (32.0-36.0); MEAN CORPUSCULAR VOLUME 105.1 fL (79-99); MONOCYTES % (AUTO) 11.6 % (3.0-13.0); NEUTROPHILS % (AUTO) 81.8 % (40.0-77.0); PLATELET COUNT (AUTO) 102 K/uL (130-400); RED BLOOD CELL COUNT(AUTO) 2.88 MIL/uL (4.00-5.50); RED CELL DISTRIBUTION WIDTH 22.2 % (11.0-15.5); WHITE BLOOD COUNT (AUTO) 9.5 K/uL (4.8-10.8)
[2018-12-23] MEDS: IPRATROPIUM/ALBUTEROL SULFATE 3 ML SOLUTION IH PRN ×3 (04:33→18:41)
[2018-12-23 04:45] LABS: ALBUMIN 2.4 g/dL (3.5-5.0); CREATININE 3.3 mg/dL (0.5-1.5); INR 1.6 (0.85-1.15); PARTIAL THROMBOPLASTIN TIME 44.8 SEC (26.3-35.5); POTASSIUM 4.1 mmol/L (3.5-5.1); PROTHROMBIN TIME 16.5 SEC (9.6-11.6); TOTAL PROTEIN, SERUM 5.5 g/dL (6.0-8.3)
[2018-12-23 04:56] LABS: BILIRUBIN,TOTAL 18.3 mg/dL (0.2-1.0)
[2018-12-23] MEDS: ALBUMIN (HUMAN) 25% 50 ML IV SCH ×3 (05:00→21:40)
[2018-12-23] MEDS: OCTREOTIDE ACETATE 100 MCG/ML AMP SQ SCH ×3 (05:00→21:39)
--- NOTE | 2018-12-23 05:40 | NUR ---
25 gm dextrose iv administered for bs 61
--- NOTE | 2018-12-23 06:48 | NUR ---
glucometer recheck 145
[2018-12-23 07:33] VITALS: BP 100/58
[2018-12-23 08:12] LABS: HEPATITIS A ANTIBODY IGM Negative (Negative); HEPATITIS B CORE IGM Negative (Negative); HEPATITIS Bs ANTIGEN SCREEN P Negative (Negative)
[2018-12-23] MEDS: MIDODRINE HCL 5 MG TABLET PO SCH ×3 (09:00→21:39)
[2018-12-23 11:25] VITALS: BP 103/76
[2018-12-23] MEDS: DEXTROSE 5 % AND 0.9 % NACL 1,000 ML IV SCH (12:16)
--- NOTE | 2018-12-23 12:19 | NUR ---
Medication task clean up Medication before shift that were not charted as administered were removed from list as not applicable to clean the medication task list.
[2018-12-23 15:04] VITALS: BP 105/48
--- NOTE | 2018-12-23 16:40 | NUR ---
DC PLAN PATIENT LIVES ALONE. INDEPENDENT ABLE TO PERFORM ADL'S. PATIENT HAS NO SERVICES. WALKER AND WHEEL CHAIR. PATIENT HAS BEEN TRYING TO GET SISTER TO BE HER PROVIDER. Addendum: 12/23/18 at 1642 by ABILIO CAI RN CM Amended: Links added.
[2018-12-23] MEDS ORDERED: VANCOMYCIN 750MG + NS 250 ML IV SCH ×2 (18:15)
[2018-12-23 20:11] VITALS: BP 101/50
[2018-12-24] VITALS (39 sets, daily range): BP systolic 55–141; BP diastolic 28–92
[2018-12-24] MEDS: INSULIN HUMULIN R 100 UNIT/ML 3ML SQ SCH ×4 (00:15→18:15)
[2018-12-24] MEDS: IPRATROPIUM/ALBUTEROL SULFATE 3 ML SOLUTION IH PRN ×3 (00:44→18:07)
[2018-12-24 04:26] LABS: BASOPHILS % (AUTO) 0.3 % (0.0-5.0); LYMPHOCYTES % (AUTO) 4.7 % (21.0-51.0); MEAN CORPUSCULAR HEMOGLOBIN 35.7 pg (27.0-33.0); MEAN CORPUSCULAR HGB CONC 33.6 g/dL (32.0-36.0); MEAN CORPUSCULAR VOLUME 106.3 fL (79-99); NUCLEATED RED BLOOD CELLS 0.1 % (0.0-0.19); PLATELET COUNT (AUTO) 121 K/uL (130-400); RED BLOOD CELL COUNT(AUTO) 2.82 MIL/uL (4.00-5.50); RED CELL DISTRIBUTION WIDTH 22.6 % (11.0-15.5); WHITE BLOOD COUNT (AUTO) 8.6 K/uL (4.8-10.8)
[2018-12-24 04:35] LABS: CREATININE 3.9 mg/dL (0.5-1.5); PHOSPHORUS 7.9 mg/dL (2.5-4.9); POTASSIUM 4.6 mmol/L (3.5-5.1)
[2018-12-24] MEDS: ALBUMIN (HUMAN) 25% 50 ML IV SCH ×3 (06:19→22:04)
[2018-12-24] MEDS: LACTULOSE 20 GM/30 ML UDCUP PO SCH ×4 (06:20→17:10)
[2018-12-24] MEDS: OCTREOTIDE ACETATE 100 MCG/ML AMP SQ SCH ×3 (06:20→21:13)
--- NOTE | 2018-12-24 07:33 | NUR ---
Dr. Vu notified about the patient respiratory status of breathing shollow and fast looking short of breath so he ordered bipap. Also notified blood pressure systolic being in the 80's. All orders inserted as requested by Dr. Vu Addendum: 12/24/18 at 1044 by NATE OLIVEIRA RN Dr. Vu notified of lactic acid results orders inserted as requested. confirmed about LR bolus due to patients breathing and stated to give the bolus Addendum: 12/24/18 at 1657 by NATE OLIVEIRA RN @[id number] Dr. Vu notified about the patient ABG results. He ordered for 2amps of bicarb to be given. Patient was transferred to the ICU at 1100 and nursing Chapito baldwin report was notified about the order.
[2018-12-24] MEDS: MIDODRINE HCL 5 MG TABLET PO SCH ×3 (09:00→20:07)
[2018-12-24 09:11] LABS: ABG BASE EXCESS -13.8 mmol/L (-2.0-3.0); ABG HCO3 13.4 mmol/L (21.0-28.0); ABG OXYGEN SATURATION 93.5 % (95.0-99.0); ABG PCO2 36 mmHg (32-45)
[2018-12-24] MEDS ORDERED: LACTATED RINGERS 1000ML 2,000 ML IV ONE (10:08)
[2018-12-24] MEDS ORDERED: LACTATED RINGERS 1000ML IV SCH (10:15)
[2018-12-24] MEDS ORDERED: SODIUM BICARB 50MEQ 50ML VIAL ONE (11:07)
[2018-12-24] MEDS: LACTATED RINGERS 1000ML 2,000 ML IV SCH ×2 (11:08→11:09)
[2018-12-24] MEDS ORDERED: SODIUM BICARB 50MEQ 50ML VIAL IV SCH (11:15)
[2018-12-24] MEDS: FUROSEMIDE 10 MG/ML 4ML VIAL IV SCH ×2 (12:30→23:58)
[2018-12-24] MEDS ORDERED: FUROSEMIDE 10 MG/ML 4ML VIAL IV SCH (12:30)
[2018-12-24 12:31] LABS: ABG BASE EXCESS -12.4 mmol/L (-2.0-3.0); ABG HCO3 15.5 mmol/L (21.0-28.0); ABG OXYGEN SATURATION 96.9 % (95.0-99.0); ABG PCO2 43 mmHg (32-45)
[2018-12-24] MEDS: SODIUM BICARB 8.4% 50ML SYRING 150 MEQ in DEXTROSE 5%-WATER 1,000 ML IV SCH ×2 (12:51→21:13)
[2018-12-24] MEDS: HYDROCORTISONE SOD SUCCINATE 100 MG/2 ML VIAL IV SCH ×3 (13:04→23:57)
[2018-12-24] MEDS: NOREPINEPHRINE 4MG/NS 250ML 250 ML IV SCH ×2 (16:50→20:28)
[2018-12-24 20:21] LABS: ABG BASE EXCESS -14.5 mmol/L (-2.0-3.0); ABG HCO3 13.9 mmol/L (21.0-28.0); ABG OXYGEN SATURATION 94.7 % (95.0-99.0); ABG PCO2 41 mmHg (32-45)
[2018-12-24] MEDS: LACTATED RINGERS 1000ML 1,000 ML IV SCH ×2 (20:21→20:31)
[2018-12-24 20:49] LABS: CREATININE 4.1 mg/dL (0.5-1.5); MAGNESIUM 2.3 mg/dL (1.80-2.40); POTASSIUM 4.5 mmol/L (3.5-5.1)
[2018-12-24] MEDS ORDERED: SODIUM BICARB 50MEQ 50ML VIAL IV ONE (21:00)
[2018-12-24 23:55] LABS: ABG BASE EXCESS -14.6 mmol/L (-2.0-3.0); ABG HCO3 17.9 mmol/L (21.0-28.0); ABG OXYGEN SATURATION 87.5 % (95.0-99.0); ABG PCO2 74 mmHg (32-45)
[2018-12-25] VITALS (40 sets, daily range): BP systolic 83–127; BP diastolic 47–86
--- NOTE | 2018-12-25 | NUR ---
TAY MOBLEY NOTIFIED ON LATEST ABG RESULTS. NEW ORDERS RECEIVED AND WILL BE CARRIED OUT.
[2018-12-25] MEDS: INSULIN HUMULIN R 100 UNIT/ML 3ML SQ SCH ×2 (00:15→06:31)
--- NOTE | 2018-12-25 00:15 | NUR ---
TAY MOBLEY CALLED AT THIS TIME AND NOTIFIED THAT FAMILY REQUEST DNR AT THIS TIME. Addendum: 12/25/18 at 0033 by HERMES BENSON RN RN ORDER FOR DNR RECEIVED
--- NOTE | 2018-12-25 00:46 | NUR ---
[facility] COORDINATOR NOTIFIED OF FAMILIES REQUEST
[2018-12-25] MEDS: NOREPINEPHRINE 4MG/NS 250ML 250 ML IV SCH ×4 (01:01→10:20)
[2018-12-25 04:02] LABS: ABG BASE EXCESS -15.6 mmol/L (-2.0-3.0); ABG HCO3 17.3 mmol/L (21.0-28.0); ABG OXYGEN SATURATION 89.4 % (95.0-99.0); ABG PCO2 75 mmHg (32-45)
[2018-12-25 04:21] LABS: EOSINOPHILS % (AUTO) 0.2 % (0.0-8.0); HEMATOCRIT 27.6 % (36-48); LYMPHOCYTES % (AUTO) 3.6 % (21.0-51.0); MEAN CORPUSCULAR HGB CONC 31.8 g/dL (32.0-36.0); MEAN CORPUSCULAR VOLUME 110.1 fL (79-99); MONOCYTES % (AUTO) 4.8 % (3.0-13.0); NEUTROPHILS % (AUTO) 91.4 % (40.0-77.0); NUCLEATED RED BLOOD CELLS 0.3 % (0.0-0.19); PLATELET COUNT (AUTO) 136 K/uL (130-400); RED CELL DISTRIBUTION WIDTH 23.2 % (11.0-15.5); WHITE BLOOD COUNT (AUTO) 11.8 K/uL (4.8-10.8)
[2018-12-25] MEDS: OCTREOTIDE ACETATE 100 MCG/ML AMP SQ SCH (05:01)
[2018-12-25] MEDS: ALBUMIN (HUMAN) 25% 50 ML IV SCH (05:01)
[2018-12-25 05:03] LABS: ALBUMIN 3.3 g/dL (3.5-5.0); POTASSIUM 4.6 mmol/L (3.5-5.1); TOTAL PROTEIN, SERUM 5.7 g/dL (6.0-8.3)
[2018-12-25 05:06] LABS: BILIRUBIN,TOTAL 25.4 mg/dL (0.2-1.0)
--- NOTE | 2018-12-25 05:18 | NUR ---
LEVOPHED INCREASED LEVOPHED TO 30MCG/MIN FOR BRADYCARDIA AND HYPOTENSION Addendum: 12/25/18 at 0545 by PITO SHELLEY RN RN VASOPRESSIN STARTED AT THIS TIME ALSO
[2018-12-25] MEDS: VASOPRESSIN 20 UNITS in SODIUM CHLORIDE 0.9% 50 ML IV PRN ×2 (05:30→08:09)
[2018-12-25] MEDS ORDERED: PHARMACY COMMUNICATION MISC SCH (05:45)
[2018-12-25] MEDS: LACTULOSE 20 GM/30 ML UDCUP PO SCH ×2 (06:00)
[2018-12-25] MEDS: HYDROCORTISONE SOD SUCCINATE 100 MG/2 ML VIAL IV SCH (06:16)
[2018-12-25] MEDS: IPRATROPIUM/ALBUTEROL SULFATE 3 ML SOLUTION IH PRN (06:25)
[2018-12-25] MEDS: SODIUM BICARB 8.4% 50ML SYRING 150 MEQ in DEXTROSE 5%-WATER 1,000 ML IV SCH (08:07)
[2018-12-25] MEDS: MIDODRINE HCL 5 MG TABLET PO SCH (08:12)
[2018-12-25] MEDS ORDERED: LEVOFLOXACIN 250 MG/D5W 50ML 50 ML IV SCH (09:00)
--- NOTE | 2018-12-25 10:08 | NUR ---
PATIENT'S HR DECREASING. PATIENT'S FAMILY AT BEDSIDE, AWARE OF HER CONDITIONS. EMOTIONAL SUPPORT GIVEN. NO QUESTIONS AT THIS TIME.
--- NOTE | 2018-12-25 11:05 | NUR ---
PATIENT WITHOUT HEART BEAT, RESPIRATIONS OR BP. ENVIRONMENTAL ASSOCIATE RICHELLE HEART RN PRONOUNCED PATIENT AT 1105. PATIENT'S FAMILY IN ROOM, NOTIFIED. EXPLAINED PLAN FROM HERE, NO QUESTIONS AT THIS TIME.
--- NOTE | 2018-12-25 11:10 | NUR ---
DR JUNG UPDATED THAT PATIENT HAS .
--- NOTE | 2018-12-25 11:13 | NUR ---
FAREED LINE UPDATED WITH CARDIAC TIME OF , SPOKE TO TASIA. #[phone]
--- NOTE | 2018-12-25 11:27 | NUR ---
DR JUNG CONFIRMED HE WILL SIGN PATIENT'S CERTIFICATE. PAGED DR Alex ESPINOZA FOR NOTIFICATION. 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 ATTEMPTED TO PAGE DR BARCENAS ([employer]AT[employer] DYNAMITE PACKING OPERATOR) ANSWERING SERVICE DOES NOT ANSWER.
--- NOTE | 2018-12-25 12:03 | NUR ---
FAMILY IS GETTING READY TO LEAVE ROOM. PATIENT'S SISTER, JL ESPINOZA WILL CALL [employer] WITH HOME INFORMATION. PENDING TISSUE BANK TO CALL. HS AWARE. HS MADE AWARE THAT DR Alex ESPINOZA HAS NOT CALLED BACK AND DR ZHANG IS NOT AWARE YET EITHER.
--- NOTE | 2018-12-25 12:15 | NUR ---
DR Alex ESPINOZA UPDATED
--- NOTE | 2018-12-25 13:18 | NUR ---
[place] [facility] [place] EYES PREPPED FOR POSSIBLE CORNEA HARVEST IN CASE PATIENT BECOMES A DONOR. STILL PENDING EYE/TISSUE BANK TO CALL BACK.
== END 2018-12-25 11:05 | disposition expired | DRG 871 ==
LOC: EDH 10:02 → EDHIP 13:26 → 2DH 12-22 15:30 → 2BH 12-24 10:52
PROVIDERS: ADMIT Internal Medicine; ATTEND Internal Medicine
PROC: 02H633Z Insertion of Infusion Device into Right Atrium, Percutaneous Approach (ICD-10-PCS; principal; 2018-12-24)
DX: A41.51 Sepsis due to Escherichia coli [E. coli] (principal); G93.41 Metabolic encephalopathy; I85.01 Esophageal varices with bleeding; K76.7 Hepatorenal syndrome; R65.21 Severe sepsis with septic shock; J96.90 Respiratory failure, unspecified, unspecified whether with hypoxia or hypercapnia; K76.6 Portal hypertension; K83.09 Other cholangitis; N17.9 Acute kidney failure, unspecified; N30.00 Acute cystitis without hematuria; R18.8 Other ascites; N39.0 Urinary tract infection, site not specified; K75.9 Inflammatory liver disease, unspecified; E11.649 Type 2 diabetes mellitus with hypoglycemia without coma; K31.89 Other diseases of stomach and duodenum; K74.60 Unspecified cirrhosis of liver; Z66 Do not resuscitate; E03.9 Hypothyroidism, unspecified; E78.5 Hyperlipidemia, unspecified; E87.70 Fluid overload, unspecified; I10 Essential (primary) hypertension; I25.10 Atherosclerotic heart disease of native coronary artery without angina pectoris; K72.90 Hepatic failure, unspecified without coma; Z95.5 Presence of coronary angioplasty implant and graft; Z79.82 Long term (current) use of aspirin; Z79.02 Long term (current) use of antithrombotics/antiplatelets; Z79.4 Long term (current) use of insulin; Z82.49 Family history of ischemic heart disease and other diseases of the circulatory system; Z83.3 Family history of diabetes mellitus; Z88.8 Allergy status to other drugs, medicaments and biological substances; Z88.0 Allergy status to penicillin; Z98.49 Cataract extraction status, unspecified eye
CPT/HCPCS: 36415; 36600; 70450; 71045; 74181; 76700; 80048; 80053; 80074; 81001; 82140; 82550; 82803; 82947; 82948; 83605; 83690; 83735; 83874; 84100; 84145; 84484; 85025; 85610; 85730; 87040; 87077; 87088; 87186; 93005; 93970; 94640; 94660; 94664; 99291; A4357; C1751; C1894; G0378; J0692; J1720; J1815; J1940; J1956; J2354; J2405; J3370; J3490; J7030; J7040; J7042; J7070; J7120; P9046; P9047